=== PATIENT | male | born 1960 | race Caucasian/White ===

== ENCOUNTER 2017-11-26 02:02 | Emergency (ER) | payer OTHER ==
[~2017-11-26] VITALS: Ht 200.7 cm; Wt 128.6 kg
[~2017-11-26 02:02] MED LIST: ASPEC81 PO; LPR25 PO; LPT40 PO; LSN25 PO; MULTCAP33 PO; PRT40 PO
[2017-11-26] MEDS ORDERED: KETOROLAC TROMETHAMINE 30 MG/ML VIAL IV STA (02:07)
[2017-11-26] MEDS ORDERED: ONDANSETRON INJ 2 MG/ML 2 ML VIAL IV STA (02:07)
[2017-11-26 02:08] VITALS: TEMP 36.4; Ht 200.7 cm; Wt 128.6 kg
[2017-11-26 02:13] VITALS: O2SAT 99
[2017-11-26 02:27] LABS: BASO % 0.6 %; BASO ABS # 0.04 K/uL (0-0.2); EOS % 4.4 %; EOS ABS # 0.29 K/uL (0-0.5); HEMATOCRIT 42.1 % (42-52); HEMOGLOBIN 14.2 g/dL (14.0-18.0); IG# 0.01 K/uL (0.00-0.02); LYMPH % 28.7 %; LYMPH ABS # 1.91 K/uL (1.2-3.4); MEAN CELL VOLUME 93.8 fL (80-100); MEAN CORPUSCULAR HEMOGLOBIN 31.6 pg (25-34); MEAN CORPUSCULAR HGB CONC 33.7 g/dl (32-36); MEAN PLATELET VOLUME 10.5 fL (7.4-10.4); MONO % 8.9 %; MONO ABS # 0.59 K/uL (0.11-0.59); NEUT % 57.2 %; NEUT ABS # 3.82 K/uL (1.4-6.5); PLATELET COUNT 252 K/uL (130-400); RED CELL DISTRIBUTION WIDTH CV 13.1 % (11.5-14.5); RED CELL DISTRIBUTION WIDTH SD 45.1 fL (36.4-46.3); WHITE BLOOD COUNT 6.66 K/uL (4.8-10.8)
[2017-11-26] MEDS ORDERED: LISI-729 PO (02:55)
[2017-11-26] MEDS ORDERED: SERT50TA PO (02:55)
[2017-11-26 02:56] LABS: ALBUMIN 3.9 gm/dl (3.4-5.0); ALT/SGPT 47 U/L (12-78); AST/SGOT 28 U/L (15-37); BLOOD UREA NITROGEN 16 mg/dl (7-18); CALCIUM 8.4 mg/dl (8.5-10.1); CARBON DIOXIDE 26 mmol/L (21-32); CREATININE 0.95 mg/dl (0.60-1.40); GLUCOSE 123 mg/dl (70-99); POTASSIUM 3.8 mmol/L (3.5-5.1); SODIUM 138 mmol/L (136-145)
[2017-11-26 02:58] LABS: ALKALINE PHOSPHATASE 110 U/L (45-117); TOTAL PROTEIN 7.4 gm/dl (6.4-8.2)
[2017-11-26] MEDS ORDERED: MoRPHine SULFATE 4 MG/ML 1 ML CARP\\VIAL IV STA (03:09)
[2017-11-26] MEDS ORDERED: HYDROmorphone INJ 1 MG/ML SYR IV STA (04:06)
--- NOTE | 2017-11-26 05:19 | EMERGENCY ROOM VISIT NOTE ---
History First contact with patient: 02:06 Chief Complaint: FLANK PAIN Stated Complaint: ABDOMINAL PAIN History of Present Illness The patient is a 57 year old male who presents to the Emergency Room with complaints of severe sudden onset of right flank pain that radiates to his groin described as severe, 8 out of 10. Nothing makes it better or worse. Patient felt nauseous with the pain. Patient denies chest pain, dyspnea, fever , chills, testicular pain, penile pain, urinary symptoms. No history of kidney stones. Review of Systems An 10 system review of systems was completed with positives and pertinent negatives listed in the HPI. Past Medical/Surgical History Medical Problems: (1) Anxiety DM2 Family History Diabetes mellitus Gallbladder disease Heart disease Hypertension Social History Smoking Status: Never Smoker Drug Use: none Marital Status: Housing Status: lives with family Occupation Status: employed Current/Historical Medications Scheduled Aspirin (Aspirin EC Low Dose), 81 MG PO QAM Atorvastatin (Lipitor), 40 MG PO QAM Lisinopril (Prinivil), 5 MG PO DAILY Metoprolol Tartrate (Lopressor), 25 MG PO BID Multiple Vitamins W/ Minerals (Preservision Areds), 2 CAP PO DAILY Pantoprazole (Pantoprazole Sodium), 40 MG PO QAM Sertraline (Zoloft), 50 MG PO DAILY Physical Exam Vital Signs Date Time Temp Pulse Resp B/P (MAP) Pulse Ox O2 Delivery O2 Flow Rate FiO2 11/26/17 05:10 67 18 119/74 96 Room Air 11/26/17 03:29 70 18 133/88 100 Room Air 11/26/17 02:43 66 16 129/83 96 Room Air 11/26/17 02:21 61 18 131/76 95 Room Air 11/26/17 02:13 99 Room Air 11/26/17 02:13 99 Room Air 11/26/17 02:09 72 11/26/17 02:08 36.4 77 18 143/83 96 Room Air Physical Exam VITALS: Vitals are noted on the nurse's note and reviewed by myself. Vital signs stable. GENERAL: Pleasant male in obvious pain, in no acute distress, nondiaphoretic, well-developed well-nourished. SKIN: Capillary reflex less than 2 seconds. HEENT: Normocephalic. PERRLA. EOMI. Nares patent. Mucous membranes moist. Neck is supple without nuchal rigidity. HEART: Regular rate and rhythm without murmurs gallops or rubs. LUNGS: Clear to auscultation bilaterally without wheezes, rales or rhonchi. No retractions or accessory muscle use. ABDOMEN: Positive bowel sounds x 4. Normal tympanic percussion. Soft, nontender, without masses or organomegaly. Martinez sign negative. No guarding or rebound tenderness. No CVA tenderness MUSCULOSKELETAL: No gross musculoskeletal defects. NEURO: Patient was alert and oriented to person place and time. Normal sensation to light and sharp touch. No focal neurological deficits. Medical Decision & Procedures Laboratory Results 11/26/17 01:50 Red Blood Count 4.49, Mean Corpuscular Volume 93.8, Mean Corpuscular Hemoglobin 31.6, Mean Corpuscular Hemoglobin Concent 33.7, Mean Platelet Volume 10.5, Neutrophils (%) (Auto) 57.2, Lymphocytes (%) (Auto) 28.7, Monocytes (%) (Auto) 8.9, Eosinophils (%) (Auto) 4.4, Basophils (%) (Auto) 0.6, Neutrophils # (Auto) 3.82, Lymphocytes # (Auto) 1.91, Monocytes # (Auto) 0.59, Eosinophils # (Auto) 0.29, Basophils # (Auto) 0.04 11/26/17 01:50 Test 11/26/17 01:50 11/26/17 04:30 White Blood Count 6.66 K/uL (4.8-10.8) Red Blood Count 4.49 M/uL (4.7-6.1) Hemoglobin 14.2 g/dL (14.0-18.0) Hematocrit 42.1 % (42-52) Mean Corpuscular Volume 93.8 fL (80-100) Mean Corpuscular Hemoglobin 31.6 pg (25-34) Mean Corpuscular Hemoglobin Concent 33.7 g/dl (32-36) Platelet Count 252 K/uL (130-400) Mean Platelet Volume 10.5 fL (7.4-10.4) Neutrophils (%) (Auto) 57.2 % Lymphocytes (%) (Auto) 28.7 % Monocytes (%) (Auto) 8.9 % Eosinophils (%) (Auto) 4.4 % Basophils (%) (Auto) 0.6 % Neutrophils # (Auto) 3.82 K/uL (1.4-6.5) Lymphocytes # (Auto) 1.91 K/uL (1.2-3.4) Monocytes # (Auto) 0.59 K/uL (0.11-0.59) Eosinophils # (Auto) 0.29 K/uL (0-0.5) Basophils # (Auto) 0.04 K/uL (0-0.2) RDW Standard Deviation 45.1 fL (36.4-46.3) RDW Coefficient of Variation 13.1 % (11.5-14.5) Immature Granulocyte % (Auto) 0.2 % Immature Granulocyte # (Auto) 0.01 K/uL (0.00-0.02) Anion Gap 7.0 mmol/L (3-11) Est Creatinine Clear Calc Drug Dose 127.5 ml/min Estimated GFR () 101.1 Estimated GFR (Non- 87.3 BUN/Creatinine Ratio 16.8 (10-20) Calcium Level 8.4 mg/dl (8.5-10.1) Total Bilirubin 0.4 mg/dl (0.2-1) Direct Bilirubin < 0.1 mg/dl (0-0.2) Aspartate Amino Transf (AST/SGOT) 28 U/L (15-37) Alanine Aminotransferase (ALT/SGPT) 47 U/L (12-78) Alkaline Phosphatase 110 U/L (45-117) Total Protein 7.4 gm/dl (6.4-8.2) Albumin 3.9 gm/dl (3.4-5.0) Urine Color YELLOW Urine Appearance CLEAR (CLEAR) Urine pH 5.0 (4.5-7.5) Urine Specific Leonard 1.020 (1.000-1.030) Urine Protein NEG (NEG) Urine Glucose (UA) NEG (NEG) Urine Ketones NEG (NEG) Urine Occult Blood NEG (NEG) Urine Nitrite NEG (NEG) Urine Bilirubin NEG (NEG) Urine Urobilinogen NEG (NEG) Urine Leukocyte Esterase NEG (NEG) Medications Administered Medications (Trade) Dose Ordered Sig/Lisy Route Start Time Stop Time Status Last Admin Dose Admin Ketorolac Tromethamine (Toradol Inj) 30 mg NOW STAT IV 11/26/17 02:07 11/26/17 02:09 DC 11/26/17 02:21 30 MG Ondansetron HCl (Zofran Inj) 4 mg NOW STAT IV 11/26/17 02:07 11/26/17 02:09 DC 11/26/17 02:20 4 MG Morphine Sulfate (MoRPHine SULFATE INJ) 4 mg NOW STAT IV 11/26/17 03:09 11/26/17 03:11 DC 11/26/17 03:20 4 MG Hydromorphone HCl (Dilaudid Inj) 1 mg NOW STAT IV 11/26/17 04:06 11/26/17 04:08 DC 11/26/17 04:10 1 MG ED Course Prior records/ancillary studies reviewed. Triage Nursing notes reviewed. Additional history obtained from the family. The patient's history was concerning for right flank pain. Differential diagnosis: Etiologies such as renal colic, appendicitis, diverticulitis, mesenteric ischemia, aortic pathology, infections, inflammatory bowel disease, PUD, biliary pathology, UTI, as well as others were entertained. Physical examination findings: As above. ER treatment provided: Morphine, Toradol, Zofran On reassessment the patient felt better. Diagnostic interpretation by me: The labs revealed hyperglycemia without DKA no leukocytosis. Urinalysis revealed There was no sign of UTI. Imaging studies: CT of the abdomen and pelvis was reviewed and read by radiology concerning a 2 mm obstructing stone on the right side It appears that the patient has isolated renal colic from a right sided stone. Patient's pain was managed. He was neurovascularly and neurologically intact. He is advised to strain his urine and take medications as directed. He was advised to follow-up with urology in a few days or here in the ER sooner for severe pain, fevers, vomiting, worsening signs or symptoms or as needed. By the evaluation outlined above emergent etiologies such as appendicitis, diverticulitis, mesenteric ischemia, aortic pathology, infections, inflammatory bowel disease, PUD, biliary pathology, UTI, as well as others were deemed relatively unlikely. The pt informed about the findings as listed above. All questions were answered and pleased with the treatment. Return instructions were outlined and the patient was discharged in stable condition. Outpatient prescription management: Oxy IR 5mg 1-2 po Q4 hrs prn Zofran Referral: The pt was referred to [facility] for follow up care regarding their stone. or The patient was referred back to their primary care physician for follow-up in 2 to 3 days for a recheck of the current condition. Case reviewed with my attending Medical Decision As above [place] Drug Monitoring Program Search Results: patient reviewed within database, no issues identified Medication Reconcilliation Current Medication List: was personally reviewed by me Blood Pressure Screening Patient's blood pressure: Normal blood pressure Impression Primary Impression: Renal colic on right side Additional Impression: Hyperglycemia Departure Information Dispostion Home / Self-Care Condition GOOD Referrals Hui Greenwood M.D. (PCP) Patient Instructions My [facility] Additional Instructions DO NOT drive, drink alcohol, operate machinery, or perform dangerous activities today. You were given medications in the ER that can affect your ability to safely function or operate a vehicle. Monitor your blood sugar. It was elevated tonight. Oxycodone Immediate Release (OxyIR) 5mg: Take 1-2 pills every four hours for pain. Avoid alcohol, operating machinery or dangerous equipment, working on ladders or roofs, DRIVING, or situations where being under the influence may be dangerous. It is recommended to use an [id number]-[id number] stool softener such as Colace, 100mg twice daily while taking this medication to avoid constipation. Zofran 4 mg: Take one every six hours as needed for nausea. Avoid alcohol, operating machinery or dangerous equipment, working on ladders or roofs, DRIVING , or situations where being under the influence may be dangerous. Ibuprofen(Motrin, Advil) may be used for fever or pain. Use 600mg every six hours as needed. Take with food. Avoid using more than 2400mg in a 24 hour period. Do not use 2400mg per day for more than three consecutive days without physician direction. Prolonged inappropriate use can lead to stomach upset or ulcers. This medication can be taken if you need to drive, work, or perform activities which may be dangerous when taking narcotic pain medication. (AND/OR) Acetaminophen(Tylenol) may be used for fever or pain. Use 1000mg every six hours as needed. Avoid using more than 3000mg in a 24 hour period. This medication can be taken if you need to drive, work, or perform activities which may be dangerous when taking narcotic pain medication. Strain your urine and collect all the stones or debris for the urologists. Rest and avoid strenuous activity until your stone passes and symptoms resolve. Drink plenty of fluids. Continue current medications. Return to the ER for worsening abdominal or back pain, vomiting, fevers, passing out, or as needed. Follow up with urology in 2-3 days, call for an appointment. Problem Qualifiers
[2017-11-26] MEDS ORDERED: OXYC1TAB3 PO ×2 (05:21→05:22)
[2017-11-26] MEDS ORDERED: ONDANSETRON HOME PACK 4MG OD TAB PO ONE (05:30)
[2017-11-26] MEDS ORDERED: OXYCODONE IR HOME PACK PO ONE (05:30)
[2017-11-26 05:41] VITALS: BP 119/74; PULSE 76; O2SAT 98
--- NOTE | 2017-11-26 06:38 | DIAGNOSTIC IMAGING REPORT ---
ABD/PELVIS WITHOUT FOR STONE CT DOSE: 1452.01 mGy.cm HISTORY: Pain right flank pain, ? stone TECHNIQUE: Multiaxial CT images of the abdomen and pelvis were performed without the use of intravenous and oral contrast according to the standard department stone protocol. A dose lowering technique was utilized adhering to the principles of ALARA. COMPARISON STUDY: None. FINDINGS: Minimal dependent basilar atelectasis. Liver spleen and pancreas appear unremarkable. Mild right renal hydronephrosis. 2 mm cortical calcification right kidney. Left kidney is unremarkable. The adrenal glands are normal. Mild right hydroureter. 2 mm calcification right ureterovesical junction. Bladder is midline. Bowel pattern is nonobstructive. IMPRESSION: 1. 2 mm calcification right ureterovesical junction. 2. Mild right hydroureteronephrosis. 3. Nonobstructing right renal cortical calcification. The above report was generated using voice recognition software. It may contain grammatical, syntax or spelling errors. Electronically signed by: Jonathon Puckett M.D. 11/26/2017 6:37 AM Dictated Date/Time: 11/26/2017 6:36 AM
== END 2017-11-26 05:40 | disposition home or self-care (01) ==
LOC: EDBD 02:02 → C.EDB 02:03
DX: N23 Unspecified renal colic (principal); E11.65 Type 2 diabetes mellitus with hyperglycemia; N20.1 Calculus of ureter; F41.9 Anxiety disorder, unspecified; Z83.3 Family history of diabetes mellitus; Z82.49 Family history of ischemic heart disease and other diseases of the circulatory system; Z79.82 Long term (current) use of aspirin

== ENCOUNTER 2018-05-22 07:20 | Emergency (ER) | payer OTHER ==
[~2018-05-22] VITALS: Ht 200.7 cm; Wt 126.2 kg
[~2018-05-22 07:20] MED LIST changes: -ASPEC81 PO; +ASPI-320 PO; +LISI-729 PO; -LSN25 PO; +OXYC-737 PO; +PANT1TAB4 PO; -PRT40 PO; +SERT50TA PO
[2018-05-22 07:22] VITALS: TEMP 37.4; Ht 200.7 cm; Wt 126.2 kg
[2018-05-22] MEDS ORDERED: IBUPROFEN 600 MG TAB PO STA (07:35)
[2018-05-22] MEDS ORDERED: CIPROFLOXACIN 500 MG TAB PO STA (07:40)
[2018-05-22] MEDS ORDERED: ONDANSETRON 4MG OD TAB PO ONE (07:45)
[2018-05-22 08:04] LABS: BASO % 0.2 %; BASO ABS # 0.02 K/uL (0-0.2); EOS % 0.6 %; EOS ABS # 0.07 K/uL (0-0.5); HEMATOCRIT 38.6 % (42-52); HEMOGLOBIN 12.8 g/dL (14.0-18.0); IG# 0.04 K/uL (0.00-0.02); LYMPH % 12.3 %; LYMPH ABS # 1.51 K/uL (1.2-3.4); MEAN CORPUSCULAR HEMOGLOBIN 30.8 pg (25-34); MEAN CORPUSCULAR HGB CONC 33.2 g/dl (32-36); MEAN PLATELET VOLUME 10.2 fL (7.4-10.4); MONO % 11.9 %; MONO ABS # 1.46 K/uL (0.11-0.59); NEUT % 74.7 %; NEUT ABS # 9.13 K/uL (1.4-6.5); PLATELET COUNT 235 K/uL (130-400); RED CELL DISTRIBUTION WIDTH CV 13.2 % (11.5-14.5); RED CELL DISTRIBUTION WIDTH SD 45.2 fL (36.4-46.3); WHITE BLOOD COUNT 12.23 K/uL (4.8-10.8)
--- NOTE | 2018-05-22 08:10 | DIAGNOSTIC IMAGING REPORT ---
R FOOT MIN 3 VIEWS ROUTINE CLINICAL HISTORY: Redness swelling/stepped on nail. COMPARISON: None FINDINGS: Tarsometatarsal joints are intact. No acute fracture or radiopaque foreign body is noted. Soft tissue swelling of the right first toe and medial to the right first metatarsophalangeal joint is noted. There is no evidence for osteomyelitis. 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 IMPRESSION: Right first toe soft tissue swelling. No acute fracture, radiopaque foreign body or evidence for osteomyelitis. Electronically signed by: Rocco Patel M.D. 05/22/2018 8:08 AM Dictated Date/Time: 05/22/2018 8:07 AM
[2018-05-22 08:23] LABS: CALCIUM 9.1 mg/dl (8.5-10.1); CREATININE 0.98 mg/dl (0.60-1.40); POTASSIUM 3.7 mmol/L (3.5-5.1)
[2018-05-22] MEDS ORDERED: CIPR1TAB10 PO (08:31)
--- NOTE | 2018-05-22 08:33 | EMERGENCY ROOM VISIT NOTE ---
History First contact with patient: 07:25 Chief Complaint: FOOT PAIN Stated Complaint: RT FOOT PAIN History of Present Illness The patient is a 57 year old male who presents to the Emergency Room with complaints of right foot pain and swelling. The patient states that on Monday he stepped on a 3 inch drywall nail that was on a board and it went through his shoe into his foot. He states it was at least an inch and a half or 2 inches into his foot. He pulled it out. He called his family doctor on Monday to make sure his tetanus was up-to-date and states that it is up-to-date. He states yesterday it started becoming more painful and started swelling and got red. Today it is much worse. He took Tylenol last night for pain without any relief. He did not take anything today. The patient denies any numbness and tingling in his foot. The patient is diabetic. He admits he is not very compliant with his medications or checking his blood sugars. He does admit that he washed the wound out with water and peroxide. He states that he feels a little nauseous. He also felt like he was chilled yesterday. Review of Systems 10 system review was performed and was negative unless stated otherwise history of present illness. Past Medical/Surgical History Medical Problems: (1) Anxiety Hypertension, diabetic, kidney stones, back surgery, appendectomy Family History Diabetes mellitus Gallbladder disease Heart disease Hypertension Social History Smoking Status: Never Smoker Drug Use: none Marital Status: Housing Status: lives with family Occupation Status: employed Current/Historical Medications Scheduled Aspirin (Aspirin EC Low Dose), 81 MG PO QAM Atorvastatin (Lipitor), 40 MG PO QAM Lisinopril (Prinivil), 5 MG PO DAILY Metoprolol Tartrate (Lopressor), 25 MG PO BID Multiple Vitamins W/ Minerals (Preservision Areds), 2 CAP PO DAILY Pantoprazole (Pantoprazole Sodium), 40 MG PO QAM Sertraline (Zoloft), 50 MG PO DAILY Scheduled PRN Oxycodone Immediate Rel Tab (Roxicodone Ir), 1-2 TAB PO Q4H PRN for Severe Pain Physical Exam Vital Signs Date Time Temp Pulse Resp B/P (MAP) Pulse Ox O2 Delivery O2 Flow Rate FiO2 05/22/18 07:22 37.4 82 18 139/73 94 Room Air Physical Exam GENERAL: 57-year-old white male appears in no acute distress. MENTAL Status alert and oriented 3 NECK: Supple, no lymphadenopathy noted. No carotid bruits noted. LUNGS: Clear auscultation without wheezes rales or rhonchi. CARDIAC: Regular rate and rhythm without murmur. Pulses is full and equal throughout. RIGHT FOOT: No gross bony deformity noted. There is a healed puncture wound on the plantar surface over the distal first metatarsal region. There is diffuse erythema and edema from the first metatarsal extending over the entire great toe. There is a red streak on the dorsal aspect of the foot. I do not appreciate any distinctive red streaking up the leg. Medical Decision & Procedures ER Provider Diagnostic Interpretation: R FOOT MIN 3 VIEWS ROUTINE CLINICAL HISTORY: Redness swelling/stepped on nail. COMPARISON: None FINDINGS: Tarsometatarsal joints are intact. No acute fracture or radiopaque foreign body is noted. Soft tissue swelling of the right first toe and medial to the right first metatarsophalangeal joint is noted. There is no evidence for osteomyelitis. 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 IMPRESSION: Right first toe soft tissue swelling. No acute fracture, radiopaque foreign body or evidence for osteomyelitis. Electronically signed by: Rocco Patel M.D. 05/22/2018 8:08 AM Dictated Date/Time: 05/22/2018 8:07 AM Laboratory Results 05/22/18 07:50 Red Blood Count 4.15, Mean Corpuscular Volume 93.0, Mean Corpuscular Hemoglobin 30.8, Mean Corpuscular Hemoglobin Concent 33.2, Mean Platelet Volume 10.2, Neutrophils (%) (Auto) 74.7, Lymphocytes (%) (Auto) 12.3, Monocytes (%) (Auto) 11.9, Eosinophils (%) (Auto) 0.6, Basophils (%) (Auto) 0.2, Neutrophils # (Auto ) 9.13, Lymphocytes # (Auto) 1.51, Monocytes # (Auto) 1.46, Eosinophils # (Auto ) 0.07, Basophils # (Auto) 0.02 05/22/18 07:50 Test 05/22/18 07:50 White Blood Count 12.23 K/uL (4.8-10.8) Red Blood Count 4.15 M/uL (4.7-6.1) Hemoglobin 12.8 g/dL (14.0-18.0) Hematocrit 38.6 % (42-52) Mean Corpuscular Volume 93.0 fL (80-100) Mean Corpuscular Hemoglobin 30.8 pg (25-34) Mean Corpuscular Hemoglobin Concent 33.2 g/dl (32-36) Platelet Count 235 K/uL (130-400) Mean Platelet Volume 10.2 fL (7.4-10.4) Neutrophils (%) (Auto) 74.7 % Lymphocytes (%) (Auto) 12.3 % Monocytes (%) (Auto) 11.9 % Eosinophils (%) (Auto) 0.6 % Basophils (%) (Auto) 0.2 % Neutrophils # (Auto) 9.13 K/uL (1.4-6.5) Lymphocytes # (Auto) 1.51 K/uL (1.2-3.4) Monocytes # (Auto) 1.46 K/uL (0.11-0.59) Eosinophils # (Auto) 0.07 K/uL (0-0.5) Basophils # (Auto) 0.02 K/uL (0-0.2) RDW Standard Deviation 45.2 fL (36.4-46.3) RDW Coefficient of Variation 13.2 % (11.5-14.5) Immature Granulocyte % (Auto) 0.3 % Immature Granulocyte # (Auto) 0.04 K/uL (0.00-0.02) Anion Gap 8.0 mmol/L (3-11) Est Creatinine Clear Calc Drug Dose 122.5 ml/min Estimated GFR () 97.4 Estimated GFR (Non- 84.1 BUN/Creatinine Ratio 17.3 (10-20) Calcium Level 9.1 mg/dl (8.5-10.1) Medications Administered Medications (Trade) Dose Ordered Sig/Lisy Route Start Time Stop Time Status Last Admin Dose Admin Ibuprofen (Motrin Tab) 600 mg NOW STAT PO 05/22/18 07:35 05/22/18 07:37 DC 05/22/18 07:43 600 MG Ciprofloxacin (Cipro Tab) 500 mg NOW STAT PO 05/22/18 07:40 05/22/18 07:42 DC 05/22/18 07:43 500 MG Ondansetron HCl (Zofran Odt) 4 mg ONE ONCE PO 05/22/18 07:45 05/22/18 07:46 DC 05/22/18 07:51 4 MG ED Course The patient was evaluated. Patient's EMR medication list were reviewed. CBC and differential and renal profile was ordered. The patient was given Cipro 500 mg p.o. and Zofran 4 mg ODT. X-ray of the right foot was ordered interpreted by the radiologist and myself as above without any evidence of foreign body, fracture or osteomyelitis. Labs are reviewed. The patient's white count was elevated at 12,000.. Renal profile was reviewed and glucose is only slightly elevated at 112. Otherwise labs are unremarkable. Patient was informed of the findings and discharged home in stable condition. Medical Decision The patient is diabetic therefore baseline labs were obtained. Differential diagnosis includes cellulitis, osteomyelitis. [place] Drug [place] Search Results: patient reviewed within database Medication Reconcilliation Current Medication List: was personally reviewed by [place] Blood Pressure Screening Patient's blood pressure: Normal blood pressure Impression Primary Impression: Cellulitis of foot, right Departure Information Dispostion Home / Self-Care Condition GOOD Prescriptions Ciprofloxacin Hcl (CIPRO) 500 Mg Tab 500 MG PO BID for 10 Days, #20 TAB Prov: Katie Puckett PA-C 05/22/18 Referrals Hui Greenwood M.D. (PCP) Forms HOME CARE DOCUMENTATION FORM, IMPORTANT VISIT INFORMATION Patient Instructions Cellulitis - [facility], [facility] Additional Instructions Keep leg elevated whenever possible. Ibuprofen 600 mg every 6 hours with food for pain. Take Cipro as prescribed. Call your family doctor today for follow- up appointment in 24-48 hours. If symptoms worsen in the interim, return to ER.
[2018-05-22 08:47] VITALS: BP 110/59; PULSE 74; O2SAT 95
== END 2018-05-22 08:48 | disposition home or self-care (01) ==
LOC: C.EDB 07:21 → C.EDA 08:48
DX: L03.115 Cellulitis of right lower limb (principal); W22.8XXA Striking against or struck by other objects, initial encounter; I10 Essential (primary) hypertension; E11.9 Type 2 diabetes mellitus without complications; Z91.14 Patient's other noncompliance with medication regimen; Z79.899 Other long term (current) drug therapy

== ENCOUNTER 2018-05-26 13:00 | Observation (INO) | payer OTHER ==
[~2018-05-26] VITALS: Ht 200.7 cm; Wt 126.1 kg
[~2018-05-26 13:00] MED LIST changes: +CIPR1TAB10 PO
[2018-05-26] MEDS ORDERED: VANCOMYCIN IV 2,500 MG in SODIUM CHLORIDE 0.9% 500ML 500 ML IV STA (13:29)
[2018-05-26] MEDS ORDERED: VANCOMYCIN CONSULT ACTIVE PRN ×2 (13:30→16:15)
--- NOTE | 2018-05-26 13:35 | EMERGENCY ROOM VISIT NOTE ---
History Report prepared by Carroll: Tom Beltran Under the Supervision of: Dr. Jolene Pal M.D. First contact with patient: 13:12 Chief Complaint: FOOT PAIN Stated Complaint: RIGHT FOOT SWELLING PT WAS TOLD TO RETURN TO ER History of Present Illness The patient is a 57 year old male who presents to the Emergency Room with complaints of worsening pain in his right foot beginning 6 days ago. The patient states he stepped on a screw 6 days ago while clearing old wooden boards. He notes he was wearing sneakers when this occurred. He reports he had a tetanus shot and washed it with peroxide. The patient notes he was able to walk on it on Monday and Monday. He states he woke up on Monday and had severe swelling and redness to his foot. The patient reports he was evaluated Monday night and given Cipro. He notes he was told to come back if it did not feel better. The patient states since then, he has had a decreased sensation to his big right toe. He reports he can feel pain, but he cannot move it. The patient notes a history of type II diabetes. He states he cannot walk on it because walking makes his symptoms worse. The patient denies fevers. Source of History: patient Onset: 6 days ago Position: foot (right) Timing: worsening Modifying Factors (Worsening): other (walking) Associated Symptoms: No fevers Note: Associated symptoms: swelling and redness to the foot, decreased sensation to the big right toe Review of Systems See HPI for pertinent positives & negatives. A total of 10 systems reviewed and were otherwise negative. Past Medical & Surgical Medical Problems: (1) Anxiety Family History Diabetes mellitus Gallbladder disease Heart disease Hypertension Social History Smoking Status: Never Smoker Drug Use: none Marital Status: Housing Status: lives with family Occupation Status: employed Current/Historical Medications Scheduled Aspirin (Aspirin EC Low Dose), 81 MG PO QAM Atorvastatin (Lipitor), 40 MG PO QAM Ciprofloxacin Hcl (Cipro), 500 MG PO BID Lisinopril (Prinivil), 5 MG PO DAILY Metoprolol Tartrate (Lopressor), 25 MG PO BID Multiple Vitamins W/ Minerals (Preservision Areds), 2 CAP PO DAILY Pantoprazole (Pantoprazole Sodium), 40 MG PO QAM Sertraline (Zoloft), 50 MG PO DAILY Allergies Coded Allergies: Adhesives (Verified Allergy, Mild, RASH, 11/26/17) Nitroglycerin (Verified Adverse Reaction, Severe, SHORTNESS OF BREATH, 09/02) PT REPORTED DIFFICULTY BREATHING, INCREASED CHEST PAIN, DIAPHORESIS Physical Exam Vital Signs Date Time Temp Pulse Resp B/P (MAP) Pulse Ox O2 Delivery O2 Flow Rate FiO2 05/26/18 16:15 71 18 100/75 96 Room Air 05/26/18 15:53 95 Room Air 05/26/18 14:23 72 20 94/57 95 Room Air 05/26/18 13:04 36.7 90 18 135/69 95 Room Air Physical Exam Vital signs reviewed. General: Well-appearing 57 year old male, in no significant distress. HEENT: No scleral icterus, PERRLA, neck supple. Atraumatic. Cardiovascular: Regular rate and rhythm, no extra sounds. Pulmonary: Clear to auscultation bilaterally, normal work of breathing. Abdomen: Soft, nontender, nondistended, positive bowel sounds. Musculoskeletal: Atraumatic, no peripheral edema. Erythema over the right great toe. Pain with any ROM. Some swelling and pain along the medial malleolus. Neurologic: Patient awake alert and oriented x 3 Skin: Warm, dry, erythema to the right great toe as above. Medical Decision & Procedures ER Provider Diagnostic Interpretation: X-ray results as stated below per interpretation by me and the radiologist: RIGHT FOOT 3 VIEWS CLINICAL HISTORY: Right foot pain and erythema. Puncture wound with a screw. FINDINGS: 3 views of the right foot are compared to study dated 05/22/2018. The skeletal structures are well mineralized for age. No fracture is identified. No bony erosion or periostitis is seen. Minimal osteoarthritic change is noted at the first metatarsophalangeal joint. There is degenerative spurring along the dorsal aspect of the tarsal bones. A high arch is noted. Mild soft tissue edema is present in the forefoot. No radiodense/metallic foreign body is seen. Small foci of subcutaneous gas are identified. IMPRESSION: 1. No acute bony abnormality is identified in the right foot. 2. Soft tissue edema is present in the forefoot. Correlate clinically for evidence of cellulitis. No radiodense foreign body is seen. Electronically signed by: Lex Wheeler M.D. 05/26/2018 2:23 PM Dictated Date/Time: 05/26/2018 2:21 PM Laboratory Results 05/26/18 14:15 Red Blood Count 4.04, Mean Corpuscular Volume 93.6, Mean Corpuscular Hemoglobin 30.2, Mean Corpuscular Hemoglobin Concent 32.3, Mean Platelet Volume 9.8, Neutrophils (%) (Auto) 59.9, Lymphocytes (%) (Auto) 24.9, Monocytes (%) (Auto) 7.3, Eosinophils (%) (Auto) 7.2, Basophils (%) (Auto) 0.4, Neutrophils # (Auto) 4.27, Lymphocytes # (Auto) 1.77, Monocytes # (Auto) 0.52, Eosinophils # (Auto) 0.51, Basophils # (Auto) 0.03 05/26/18 14:15 Test 05/26/18 14:15 White Blood Count 7.12 K/uL (4.8-10.8) Red Blood Count 4.04 M/uL (4.7-6.1) Hemoglobin 12.2 g/dL (14.0-18.0) Hematocrit 37.8 % (42-52) Mean Corpuscular Volume 93.6 fL (80-100) Mean Corpuscular Hemoglobin 30.2 pg (25-34) Mean Corpuscular Hemoglobin Concent 32.3 g/dl (32-36) Platelet Count 272 K/uL (130-400) Mean Platelet Volume 9.8 fL (7.4-10.4) Neutrophils (%) (Auto) 59.9 % Lymphocytes (%) (Auto) 24.9 % Monocytes (%) (Auto) 7.3 % Eosinophils (%) (Auto) 7.2 % Basophils (%) (Auto) 0.4 % Neutrophils # (Auto) 4.27 K/uL (1.4-6.5) Lymphocytes # (Auto) 1.77 K/uL (1.2-3.4) Monocytes # (Auto) 0.52 K/uL (0.11-0.59) Eosinophils # (Auto) 0.51 K/uL (0-0.5) Basophils # (Auto) 0.03 K/uL (0-0.2) RDW Standard Deviation 44.2 fL (36.4-46.3) RDW Coefficient of Variation 12.9 % (11.5-14.5) Immature Granulocyte % (Auto) 0.3 % Immature Granulocyte # (Auto) 0.02 K/uL (0.00-0.02) Erythrocyte Sedimentation Rate 17 mm/hr (0-14) Anion Gap 5.0 mmol/L (3-11) Est Creatinine Clear Calc Drug Dose 117.7 ml/min Estimated GFR () 92.8 Estimated GFR (Non- 80.1 BUN/Creatinine Ratio 14.9 (10-20) Calcium Level 8.5 mg/dl (8.5-10.1) Total Bilirubin 0.3 mg/dl (0.2-1) Direct Bilirubin 0.1 mg/dl (0-0.2) Aspartate Amino Transf (AST/SGOT) 21 U/L (15-37) Alanine Aminotransferase (ALT/SGPT) 30 U/L (12-78) Alkaline Phosphatase 87 U/L (45-117) C-Reactive Protein 1.54 mg/dl (0-0.29) Total Protein 7.2 gm/dl (6.4-8.2) Albumin 3.6 gm/dl (3.4-5.0) Laboratory results per my review. Medications Administered Medications (Trade) Dose Ordered Sig/Lisy Route Start Time Stop Time Status Last Admin Dose Admin Vancomycin HCl 2500 mg/Sodium Chloride 550 ml @ 200 mls/hr ONE STAT IV 05/26/18 13:29 05/26/18 16:13 DC 05/26/18 14:18 200 MLS/HR Acetaminophen (Tylenol Tab) 650 mg Q4H PRN PO 05/26/18 16:15 06/25/18 16:14 05/27/18 12:28 650 MG ED Course 1329: Past medical records reviewed. The patient was evaluated in room C05. A complete history and physical examination was performed. 1521: Upon reevaluation, the patient is resting comfortably. I discussed laboratory and radiographic results with him. He verbalized agreement of the treatment plan. The patient will be evaluated for further management and care. 1526: I discussed the patient's case with Dr. Nair, [facility] Hospitalist. The patient will be evaluated for further management and care. Medical Decision Differential diagnosis: Etiologies such as cellulitis, abscess, MRSA infection, DVT, necrotizing fasciitis, dermatitis, osteomyelitis, drug eruption, as well as others were entertained. This patient was evaluated and appeared to be in no significant distress. IV access was obtained and laboratory work was drawn. IV vancomycin was initiated. The patient does not appear to be septic however does have some erythema streaking up the medial aspect of the ankle/foot. X-rays were performed and reveal no evidence of osteomyelitis. Sedimentation rate and CRP are mildly elevated. Given the fact that a screw entered the patient's foot through his sneaker, he was placed on Cipro but has failed treatment. He is diabetic and is at increased risk for infection/failed treatment. Case was discussed with Dr. Nair of the hospitalist service. She will evaluate the patient for further management. Medication Reconcilliation Current Medication List: was personally reviewed by me Blood Pressure Screening Patient's blood pressure: Normal blood pressure Blood pressure disposition: Did not require urgent referral Consults Time Called: 1524 Consulting Physician: Dr. Nair, [facility] Hospitalist Returned Call: 1526 I discussed the patient's case with Dr. Nair, [facility] Hospitalist. The patient will be evaluated for further management and care. Impression Primary Impression: Cellulitis of right foot Additional Impressions: Type II diabetes mellitus Evaluation for osteomyelitis Scribe Attestation The scribe's documentation has been prepared under my direction and personally reviewed by me in its entirety. I confirm that the note above accurately reflects all work, treatment, procedures, and medical decision making performed by me. Departure Information Dispostion Being Evaluated By Hospitalist Referrals Hui Greenwood M.D. (PCP) Patient Instructions My [facility] Problem Qualifiers
--- NOTE | 2018-05-26 14:25 | DIAGNOSTIC IMAGING REPORT ---
RIGHT FOOT 3 VIEWS CLINICAL HISTORY: Right foot pain and erythema. Puncture wound with a screw. FINDINGS: 3 views of the right foot are compared to study dated 05/22/2018. The skeletal structures are well mineralized for age. No fracture is identified. No bony erosion or periostitis is seen. Minimal osteoarthritic change is noted at the first metatarsophalangeal joint. There is degenerative spurring along the dorsal aspect of the tarsal bones. A high arch is noted. Mild soft tissue edema is present in the forefoot. No radiodense/metallic foreign body is seen. Small foci of subcutaneous gas are identified. IMPRESSION: 1. No acute bony abnormality is identified in the right foot. 2. Soft tissue edema is present in the forefoot. Correlate clinically for evidence of cellulitis. No radiodense foreign body is seen. Electronically signed by: Lex Wheeler M.D. 05/26/2018 2:23 PM Dictated Date/Time: 05/26/2018 2:21 PM
[2018-05-26 14:34] LABS: BASO % 0.4 %; BASO ABS # 0.03 K/uL (0-0.2); EOS % 7.2 %; EOS ABS # 0.51 K/uL (0-0.5); HEMATOCRIT 37.8 % (42-52); HEMOGLOBIN 12.2 g/dL (14.0-18.0); IG# 0.02 K/uL (0.00-0.02); LYMPH % 24.9 %; LYMPH ABS # 1.77 K/uL (1.2-3.4); MEAN CELL VOLUME 93.6 fL (80-100); MEAN CORPUSCULAR HEMOGLOBIN 30.2 pg (25-34); MEAN CORPUSCULAR HGB CONC 32.3 g/dl (32-36); MEAN PLATELET VOLUME 9.8 fL (7.4-10.4); MONO % 7.3 %; MONO ABS # 0.52 K/uL (0.11-0.59); NEUT % 59.9 %; NEUT ABS # 4.27 K/uL (1.4-6.5); PLATELET COUNT 272 K/uL (130-400); RED CELL DISTRIBUTION WIDTH CV 12.9 % (11.5-14.5); RED CELL DISTRIBUTION WIDTH SD 44.2 fL (36.4-46.3); WHITE BLOOD COUNT 7.12 K/uL (4.8-10.8)
[2018-05-26 14:54] LABS: ALBUMIN 3.6 gm/dl (3.4-5.0); CALCIUM 8.5 mg/dl (8.5-10.1); CREATININE 1.02 mg/dl (0.60-1.40); POTASSIUM 3.8 mmol/L (3.5-5.1); TOTAL PROTEIN 7.2 gm/dl (6.4-8.2)
[2018-05-26 15:53] VITALS: O2SAT 95; Ht 200.7 cm; Wt 126.1 kg
[2018-05-26] MEDS ORDERED: ACETAMINOPHEN 325 MG TAB PO PRN (16:15)
[2018-05-26] MEDS ORDERED: ONDANSETRON INJ 2 MG/ML 2 ML VIAL IV PRN (16:15)
[2018-05-26] MEDS ORDERED: MAGNESIUM HYDROXIDE SUSP 30 ML UDC PO PRN (16:15)
--- NOTE | 2018-05-26 16:29 | History and Physical ---
History & Physical Date & Time of Service: May 26, 2018 at 16:21 Chief Complaint: Right Foot Swelling Pt Was Told To Return To Er Primary Care Physician: Hui Greenwood M.D. History of Present Illness Source: patient 57 y/o M c/o worsening R foot cellulitis. Pt states he stepped on a screw last Monday. He has done this in the past and had no issues with infection, however by Monday his R foot was red, swollen, and painful. He came to the ED and was started on cipro, which he did start that day and continued to take. He noted today his R foot was worse. Increased redness, swelling, pain. He cannot feel his great toe and he cannot move it much either. No pain with the limited movement he is able to do. No pain to the foot at rest, but the pain with ambulation is worse. The redness was just around the great toe prior, however now it has spread along the arch to the back of the foot. He did have nausea but no emesis. He has felt well otherwise. No hx of cellulitis. Pt denies fever, SOB, chest pain, abd pain, c/d. Pt called his PCP office and his last tetanus vaccine was 2011. Past Medical/Surgical History DM-diet controlled HTN Hyperlipidemia GERD Anxiety Family History Family history was reviewed; no changes noted. Father s/p CABG Social History Smoking Status: Never Smoker Alcohol Use: none Drug Use: none Marital Status: Housing status: lives with significant other Occupational Status: employed Immunizations History of Influenza Vaccine: Yes Influenza Vaccine Date: Jun 20, 2012 History of Tetanus Vaccine?: Yes Tetanus Immunization Date: Jun 20, 2012 History of Pneumococcal: No History of Hepatitis B Vaccine: No Allergies Coded Allergies: Adhesives (Verified Allergy, Mild, RASH, 11/26/17) Nitroglycerin (Verified Adverse Reaction, Severe, SHORTNESS OF BREATH, 09/02) PT REPORTED DIFFICULTY BREATHING, INCREASED CHEST PAIN, DIAPHORESIS Home Medications Scheduled Aspirin (Aspirin EC Low Dose), 81 MG PO QAM Atorvastatin (Lipitor), 40 MG PO QAM Ciprofloxacin Hcl (Cipro), 500 MG PO BID Lisinopril (Prinivil), 5 MG PO DAILY Metoprolol Tartrate (Lopressor), 25 MG PO BID Multiple Vitamins W/ Minerals (Preservision Areds), 2 CAP PO DAILY Pantoprazole (Pantoprazole Sodium), 40 MG PO QAM Sertraline (Zoloft), 50 MG PO DAILY Review of Systems Pertinent positives and negatives reviewed in HPI--all others negative Physical Exam Vital Signs Date Time Temp Pulse Resp B/P (MAP) Pulse Ox O2 Delivery O2 Flow Rate FiO2 05/26/18 15:53 95 Room Air 05/26/18 14:23 72 20 94/57 95 Room Air 05/26/18 13:04 36.7 90 18 135/69 95 Room Air General Appearance: WD/WN, no apparent distress Head: normocephalic, atraumatic Eyes: normal inspection, sclerae normal Respiratory/Chest: normal breath sounds, no respiratory distress Cardiovascular: regular rate, rhythm, normal peripheral pulses Abdomen/GI: non tender, soft Extremities/Musculoskelatal: no calf tenderness, + swelling, + pertinent finding (TTP) Neurologic/Psych: alert, normal mood/affect Skin: warm/dry, + pertinent finding (redness is most intense along R great toe and moving posteriorly to arch and heel, puncture site noted on ball of R great toe that is closed and no signs of bleeding or purulence or redness) Diagnostics Laboratory Results Results Past 24 Hours Test 05/26/18 14:15 Range/Units White Blood Count 7.12 4.8-10.8 K/uL Red Blood Count 4.04 4.7-6.1 M/uL Hemoglobin 12.2 14.0-18.0 g/dL Hematocrit 37.8 42-52 % Mean Corpuscular Volume 93.6 80-100 fL Mean Corpuscular Hemoglobin 30.2 25-34 pg Mean Corpuscular Hemoglobin Concent 32.3 32-36 g/dl Platelet Count 272 130-400 K/uL Mean Platelet Volume 9.8 7.4-10.4 fL Neutrophils (%) (Auto) 59.9 % Lymphocytes (%) (Auto) 24.9 % Monocytes (%) (Auto) 7.3 % Eosinophils (%) (Auto) 7.2 % Basophils (%) (Auto) 0.4 % Neutrophils # (Auto) 4.27 1.4-6.5 K/uL Lymphocytes # (Auto) 1.77 1.2-3.4 K/uL Monocytes # (Auto) 0.52 0.11-0.59 K/uL Eosinophils # (Auto) 0.51 0-0.5 K/uL Basophils # (Auto) 0.03 0-0.2 K/uL RDW Standard Deviation 44.2 36.4-46.3 fL RDW Coefficient of Variation 12.9 11.5-14.5 % Immature Granulocyte % (Auto) 0.3 % Immature Granulocyte # (Auto) 0.02 0.00-0.02 K/uL Erythrocyte Sedimentation Rate 17 0-14 mm/hr Sodium Level 138 136-145 mmol/L Potassium Level 3.8 3.5-5.1 mmol/L Chloride Level 106 98-107 mmol/L Carbon Dioxide Level 27 21-32 mmol/L Anion Gap 5.0 3-11 mmol/L Blood Urea Nitrogen 15 7-18 mg/dl Creatinine 1.02 0.60-1.40 mg/dl Est Creatinine Clear Calc Drug Dose 117.7 ml/min Estimated GFR () 92.8 Estimated GFR (Non- 80.1 BUN/Creatinine Ratio 14.9 10-20 Random Glucose 154 70-99 mg/dl Calcium Level 8.5 8.5-10.1 mg/dl Total Bilirubin 0.3 0.2-1 mg/dl Direct Bilirubin 0.1 0-0.2 mg/dl Aspartate Amino Transf (AST/SGOT) 21 15-37 U/L Alanine Aminotransferase (ALT/SGPT) 30 12-78 U/L Alkaline Phosphatase 87 45-117 U/L C-Reactive Protein 1.54 0-0.29 mg/dl Total Protein 7.2 6.4-8.2 gm/dl Albumin 3.6 3.4-5.0 gm/dl Diagnostic Radiology R Foot XR: cellulitis Impression Assessment and Plan 57 y/o M who was admitted for observation for R foot cellulitis R foot cellulitis: failed outpt cipro s/p puncture wound States last tetanus was 2011, given this is >5 yrs with a puncture wound, will redose today Vanco and monitor WBC elevated in ED on 05/22, now improved Afebrile Foot XR with cellulitis and neg for osteo, MRI pending given worsening sx CRP, ESR elevated DM: diet controlled, monitor HTN: continue home meds Hyperlipidemia: continue home meds GERD: continue home meds Anxiety: continue home meds CAD prevention: continue 81mg aspirin Other: Full code DM diet Lovenox for DVT proph Advanced Directives Existing Living Will: Yes 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
[2018-05-26] MEDS ORDERED: DIPHTHERIA/TETANUS/PERTUSSIS 0.5 ML SYR/VIAL IM. ONE (16:30)
[2018-05-26 17:56] VITALS: BP 117/78; PULSE 76; TEMP 36.5; O2SAT 97
[2018-05-26 18:00] VITALS: O2SAT 97
[2018-05-26] MEDS ORDERED: IV FLUIDS COMPLETED PRN (18:15)
--- NOTE | 2018-05-26 19:46 | Pharmacy Progress Note ---
Pharmacy Abx Initial Consult Date of Service May 26, 2018. Pharmacy Dosing Scope Date of Consult: 05/26/18 Consultation requested by: Dr. Nair Pharmacy is consulted to initiate Vancomycin IV dosing therapy, order appropriate labs and adjust drug dose/frequency. Subjective The patient is a 57 year old male admitted on May 26, 2018 at 16:19. Objective Height (Feet): 6 Height (Inches): 7.00 Weight (Kilograms): 126.100 Vital Signs (Past 12Hrs) Vital Signs Past 12 Hours Date Time Temp Pulse Resp B/P (MAP) Pulse Ox O2 Delivery O2 Flow Rate FiO2 05/26/18 18:00 97 Room Air 05/26/18 17:56 36.5 76 20 117/78 (91) 97 Room Air 05/26/18 17:24 76 18 133/80 98 05/26/18 16:15 71 18 100/75 96 Room Air 05/26/18 15:53 95 Room Air 05/26/18 14:23 72 20 94/57 95 Room Air 05/26/18 13:04 36.7 90 18 135/69 95 Room Air Lab Results (24Hrs) Laboratory Tests (24 Hours) Test 05/26/18 14:15 C-Reactive Protein 1.54 mg/dl (0-0.29) H Erythrocyte Sedimentation Rate 17 mm/hr (0-14) H White Blood Count 7.12 K/uL (4.8-10.8) Red Blood Count 4.04 M/uL (4.7-6.1) L Hemoglobin 12.2 g/dL (14.0-18.0) L Hematocrit 37.8 % (42-52) L Mean Corpuscular Volume 93.6 fL (80-100) Mean Corpuscular Hemoglobin 30.2 pg (25-34) Mean Corpuscular Hemoglobin Concent 32.3 g/dl (32-36) Platelet Count 272 K/uL (130-400) Mean Platelet Volume 9.8 fL (7.4-10.4) Neutrophils (%) (Auto) 59.9 % Lymphocytes (%) (Auto) 24.9 % Monocytes (%) (Auto) 7.3 % Eosinophils (%) (Auto) 7.2 % Basophils (%) (Auto) 0.4 % Neutrophils # (Auto) 4.27 K/uL (1.4-6.5) Lymphocytes # (Auto) 1.77 K/uL (1.2-3.4) Monocytes # (Auto) 0.52 K/uL (0.11-0.59) Eosinophils # (Auto) 0.51 K/uL (0-0.5) H Basophils # (Auto) 0.03 K/uL (0-0.2) Risk Factors for Resistance * Antimicrobial use within the last 90 days: Ciprofloxacin Assessment & Plan Assessment 57 year old male on empiric IV Vancomycin for R foot cellulitis * s/p puncture wound after stepping on a screw. Failed outpatient Ciprofloxacin. No osteomyelitis. * No renal impairment noted. Most recent sCr = 1.02 mg/dL with estimated CrCl > 100 mL/min. Estimated pharmacokinetic parameters: * Ke ~0.10/hr, T1/2 ~6.9 hrs * Patient received Vancomycin 2500mg (~20mg/kg) IV x 1 as a loading dose in the ED Plan Vancomycin IV * Maintenance dose: 1750 mg IV (~14 mg/kg) every 8 hours * Goal trough level for cellulitis (no osteomyelitis) : ~15 mcg/mL * Trough level ordered for 05/28 @ 0330 (prior to 5th dose and therefore should be reflective of steady state) Pharmacy will continue to follow and will adjust dose/frequency as necessary. Thank you.
[2018-05-26] MEDS: VANCOMYCIN IV 1,750 MG in SODIUM CHLORIDE 0.9% 500ML 500 ML IV SCH (20:13)
[2018-05-26] MEDS: ENOXAPARIN 40 MG/0.4 ML SYR SQ SCH (20:22)
[2018-05-26] MEDS: METOPROLOL TARTRATE 25 MG TAB PO SCH (21:00)
[2018-05-26 23:27] VITALS: BP 101/62; PULSE 62; TEMP 36.7; O2SAT 95
[2018-05-26 23:59] VITALS: O2SAT 95
[2018-05-27] MEDS: VANCOMYCIN IV 1,750 MG in SODIUM CHLORIDE 0.9% 500ML 500 ML IV SCH ×3 (03:58→19:39)
[2018-05-27 06:51] VITALS: BP 109/67; PULSE 64; TEMP 36.4; O2SAT 99
[2018-05-27 08:00] VITALS: O2SAT 99
[2018-05-27] MEDS: ATORVASTATIN 40 MG TAB PO SCH (08:09)
[2018-05-27] MEDS: ASPIRIN 81 MG ECTAB PO SCH (08:09)
[2018-05-27] MEDS: METOPROLOL TARTRATE 25 MG TAB PO SCH ×2 (08:09→19:45)
[2018-05-27] MEDS: LISINOPRIL 5 MG TAB PO SCH (08:10)
[2018-05-27] MEDS: SERTRALINE HCL 50 MG TAB PO SCH (08:10)
[2018-05-27] MEDS: PANTOprazole SOD 40 MG TAB PO SCH (08:10)
[2018-05-27 14:15] VITALS: BP 99/60; PULSE 66; TEMP 36.8; O2SAT 94
--- NOTE | 2018-05-27 15:41 | Progress Note ---
Subjective Date of Service: May 27, 2018. Subjective Pt evaluation today including: conversation w/ patient, physical exam, review of inpatient medication list Pain: less pain PO Intake: adequate Voiding: no voiding problems patient says that his foot is a lot better, redness receding, less swelling, less pain swelling is confined to the MP joint of first toe no fever, no chills, vitals stable excellent response to Vancomycin discussed with patient, likely d/c tomorrow AM on PO antibiotics, give another 24 hours of IV treatment Problem List Medical Problems: (1) Cellulitis of foot, right Status: Acute (2) Cellulitis of right foot Status: Acute (3) Hyperglycemia Status: Acute (4) Renal colic on right side Status: Acute (5) Type II diabetes mellitus Status: Acute Review of Systems Skin: + rash (right MP joint swollen, tender) All Other Systems: Reviewed and Negative Medications Current Inpatient Medications Medications (Trade) Dose Ordered Sig/Lisy Route Start Time Stop Time Status Last Admin Dose Admin Enoxaparin Sodium (Lovenox Inj) 40 mg Q24H SQ 05/26/18 22:00 06/25/18 21:59 Acetaminophen (Tylenol Tab) 650 mg Q4H PRN PO 05/26/18 16:15 06/25/18 16:14 05/27/18 12:28 650 MG Magnesium Hydroxide (Milk Of Magnesia Susp) 30 ml Q6H PRN PO 05/26/18 16:15 06/25/18 16:14 Ondansetron HCl (Zofran Inj) 4 mg Q6H PRN IV 05/26/18 16:15 06/25/18 16:14 Vancomycin HCl 1750 mg/Sodium Chloride 535 ml @ 200 mls/hr Q8H IV 05/26/18 20:00 06/05/18 19:59 05/27/18 11:26 200 MLS/HR Vancomycin HCl (Consult) 1 ea UD PRN N/A 05/26/18 16:15 06/25/18 16:14 Aspirin (Ecotrin Tab) 81 mg QAM PO 05/27/18 09:00 06/26/18 08:59 05/27/18 08:09 81 MG Atorvastatin Calcium (Lipitor Tab) 40 mg QAM PO 05/27/18 09:00 06/26/18 08:59 05/27/18 08:09 40 MG Lisinopril (Zestril Tab) 5 mg DAILY PO 05/27/18 09:00 06/26/18 08:59 05/27/18 08:10 5 MG Metoprolol Tartrate (Lopressor Tab) 25 mg BID PO 05/26/18 21:00 06/25/18 20:59 05/27/18 08:09 25 MG Pantoprazole Sodium (Protonix Tab) 40 mg QAM PO 05/27/18 09:00 06/26/18 08:59 05/27/18 08:10 40 MG Sertraline HCl (Zoloft Tab) 50 mg DAILY PO 05/27/18 09:00 06/26/18 08:59 05/27/18 08:10 50 MG Miscellaneous Information (Order Awaiting Action) 1 ea QS N/A 05/27/18 00:00 06/26/18 00:00 Miscellaneous (Iv Fluids Completed) 1 ea PRN PRN N/A 05/26/18 18:15 05/26/19 18:14 Objective Vital Signs Date Time Temp Pulse Resp B/P (MAP) Pulse Ox O2 Delivery O2 Flow Rate FiO2 05/27/18 14:15 36.8 66 17 99/60 (73) 94 Room Air 05/27/18 08:00 99 Room Air 05/27/18 06:51 36.4 64 20 109/67 (81) 99 Room Air 05/26/18 23:59 95 Room Air 05/26/18 23:27 36.7 62 18 101/62 (75) 95 Room Air 05/26/18 18:00 97 Room Air 05/26/18 17:56 36.5 76 20 117/78 (91) 97 Room Air 05/26/18 17:24 76 18 133/80 98 05/26/18 16:15 71 18 100/75 96 Room Air 05/26/18 15:53 95 Room Air Physical Exam General Appearance: WD/WN, no apparent distress Eyes: normal inspection, EOMI, sclerae normal ENT: normal ENT inspection, hearing grossly normal, pharynx normal Neck: supple, no adenopathy, no JVD, trachea midline Respiratory/Chest: chest non-tender, lungs clear, normal breath sounds, no respiratory distress, no accessory muscle use Cardiovascular: regular rate, rhythm, no edema, no gallop, no JVD, no murmur Abdomen: normal bowel sounds, non tender, soft, no organomegaly Extremities: no pedal edema, no calf tenderness, normal capillary refill, pelvis stable, + pertinent finding (swelling right first MP joint, decreased ROM due to swelling, tender to palpation) Neurologic/Psychiatric: physician locums urgent care II-XII nml as tested, no motor/sensory deficits, alert, normal mood/affect, oriented x 3 Skin: + rash (erythema over right first toe, erythema greatly reduced from the ankle and foot, receded from borders) Laboratory Results Last 24 Hours Test 05/26/18 18:23 Prothrombin Time 10.1 SECONDS Prothromb Time International Ratio 1.0 Assessment and Plan 57 y/o M who was admitted for observation for R foot cellulitis R foot cellulitis: failed outpt cipro s/p puncture wound Foot XR with cellulitis and neg for osteo, negative for retained foreign body States last tetanus was 2011, refused new tetanus shot excellent response to Vancomycin, continue today and tonight plan for PO antibiotics tomorrow and d/c home DM: diet controlled, monitor HTN: continue home meds Hyperlipidemia: continue home meds GERD: continue home meds Anxiety: continue home meds CAD prevention: continue 81mg aspirin Other: Full code DM diet Lovenox for DVT proph
[2018-05-27 16:00] VITALS: O2SAT 94
[2018-05-27 19:44] VITALS: BP 119/69; PULSE 67
[2018-05-27] MEDS: ENOXAPARIN 40 MG/0.4 ML SYR SQ SCH (19:45)
[2018-05-27 22:52] VITALS: BP 116/69; PULSE 68; TEMP 36.7; O2SAT 96
[2018-05-28] MEDS ORDERED: VANCOMYCIN TROUGH ONE (03:30)
[2018-05-28 04:29] LABS: CREATININE 0.97 mg/dl (0.60-1.40)
[2018-05-28] MEDS: VANCOMYCIN IV 1,750 MG in SODIUM CHLORIDE 0.9% 500ML 500 ML IV SCH (04:30)
[2018-05-28 07:26] VITALS: BP 128/74; PULSE 71; TEMP 36.5; O2SAT 97
[2018-05-28] MEDS: ATORVASTATIN 40 MG TAB PO SCH (07:47)
[2018-05-28] MEDS: ASPIRIN 81 MG ECTAB PO SCH (07:47)
[2018-05-28] MEDS: LISINOPRIL 5 MG TAB PO SCH (07:48)
[2018-05-28] MEDS: PANTOprazole SOD 40 MG TAB PO SCH (07:48)
[2018-05-28] MEDS: METOPROLOL TARTRATE 25 MG TAB PO SCH (07:48)
[2018-05-28] MEDS: SERTRALINE HCL 50 MG TAB PO SCH (07:49)
[2018-05-28] MEDS ORDERED: SULF800T23 PO (07:56)
--- NOTE | 2018-05-28 07:59 | Discharge Instructions ---
Discharge Instructions Date of Service May 28, 2018. Admission Reason for Admission: Cellulitis Of Right Foot Discharge Discharge Diagnosis / Problem: Cellulitis of right foot, due to puncture wound Discharge Goals Goal(s): Decrease discomfort, Improve disease control Activity Recommendations Activity Limitations: resume your previous activity . Instructions / Follow-Up Instructions / Follow-Up Medications: - BACTRIM: take twice a day for 10 days, this will complete treatment for cellulitis Cellulitis right foot due to puncture wound x-ray of foot showed no bone involvement, no foreign body cellulitis markedly improved on Vancomycin IV will complete 10 more days of Bactrim follow up with your primary care physician late this week (Karmen or Mon) FOLLOW UP - Dr. Greenwood this week, call to make appointment Current Hospital Diet Patient's current hospital diet: Diabetes Type 2 Diet Discharge Diet Recommended Diet: Diabetes Type 2 Diet Pending Studies Studies pending at discharge: no Work Instructions Return To Work: 1 day (may return on 05/29, no restrictions) Medical Emergencies . Who to Call and When: Medical Emergencies: If at any time you feel your situation is an emergency, please call 911 immediately. . Non-Emergent Contact Non-Emergency issues call your: Primary Care Provider Call Non-Emergent contact if: you have a fever, your pain is worsening, you have any medication questions . . "Provider Documentation" section prepared by Daniel Santoyo. . [place] Drug Monitoring Program Search Results: no issues identified
[2018-05-28 09:13] VITALS: BP 128/74; PULSE 71; TEMP 36.5; O2SAT 97
--- NOTE | 2018-05-28 22:48 | Discharge Summary ---
Discharge Summary Date of Service May 28, 2018. Discharge Summary Admission Date: May 26, 2018 at 16:19 Discharge Date: May 28, 2018 Discharge Disposition: Home Principal Diagnosis: Right foot cellulitis due to puncture wound Immunizations: Have You Had Influenza Vaccine: Yes Influenza Vaccine Date: Jun 20, 2012 History of Tetanus Vaccine?: Yes Tetanus Immunization Date: Jun 20, 2012 History of Pneumococcal: No History of Hepatitis B Vaccine: No Procedures: none Consultations: none Medication Reconciliation New Medications: Sulfamethoxazole-Trimethoprim (Bactrim Ds 800MG/160MG) 1 Tab Tab 1 TAB PO BID for 10 Days, #20 TAB Continued Medications: Aspirin (Aspirin EC Low Dose) 81 Mg Ectab 81 MG PO QAM for 30 Days Atorvastatin (Lipitor) 40 Mg Tab 40 MG PO QAM for 30 Days, TAB Lisinopril (Prinivil) 5 Mg Tab 5 MG PO DAILY, TAB Metoprolol Tartrate (Lopressor) 25 Mg Tab 25 MG PO BID for 30 Days, TAB Multiple Vitamins W/ Minerals (Preservision Areds) 1 Cap Cap 2 CAP PO DAILY Pantoprazole (Pantoprazole Sodium) 40 Mg Tab 40 MG PO QAM for 30 Days, TAB Sertraline (Zoloft) 50 Mg Tab 50 MG PO DAILY, TAB Discontinued Medications: Ciprofloxacin Hcl (Cipro) 500 Mg Tab 500 MG PO BID for 10 Days, #20 TAB Discharge Exam Patient feeling much better, even less swelling and less erythema in right foot. Minimal pain when standing. No fever, vitals stable. Patient feels ready for discharge. Discussed plan for Bactrim BID x 10 more days, follow up with PCP this week. Review of Systems: Constitutional: No fever, No chills, No sweats, No weight loss, No weakness , No fatigue, No problem reported Eyes: No worsening of vision, No eye pain, No redness, No discharge, No diplopia, No problem reported ENT: No hearing loss, No unusual epistaxis, No nasal symptoms, No sore throat, No tinnitus, No dental problems, No trouble swallowing, No problem reported Respiratory: No cough, No sputum, No wheezing, No shortness of breath, No dyspnea on exertion, No dyspnea at rest, No hemoptysis, No problem reported Cardiovascular: No chest pain, No orthopnea, No PND, No edema, No claudication, No palpitations, No problem reported Abdomen: No pain, No nausea, No vomiting, No diarrhea, No constipation, No GI bleeding, No problem reported Musculoskeletal: No joint pain, No muscle pain, No swelling, No calf pain, No problem reported Genitourinary - Male: No hematuria, No dysuria, No urinary frequency, No urinary urgency Neurologic: No memory loss, No paralysis, No weakness, No numbness/tingling , No vertigo, No balance problems, No problem reported Psychiatric: No depression symptoms, No anhedonism, No anxiety, No insomnia , No substance abuse, No problem reported Endocrine: No fatigue, No excessive thirst, No excessive urination, No problem reported Hematologic / Lymphatic: No abnormal bleeding/bruising, No clotting problems , No swollen lymph nodes, No night sweats, No problem reported Integumentary: + rash (right foot, plantar surface by MP joint) Physical Exam: General Appearance: WD/WN, no apparent distress Eyes: normal inspection, EOMI, sclerae normal ENT: normal ENT inspection, hearing grossly normal, pharynx normal Neck: supple, no adenopathy, no JVD, trachea midline Respiratory/Chest: chest non-tender, lungs clear, normal breath sounds, no respiratory distress, no accessory muscle use Cardiovascular: regular rate, rhythm, no edema, no gallop, no JVD, no murmur , normal peripheral pulses Abdomen / GI: normal bowel sounds, non tender, soft, no organomegaly Extremities: no calf tenderness, normal capillary refill, no pedal edema, normal range of motion, pelvis stable, + pertinent finding (mild swelling of right MP joint, much improved, more ROM in toe) Neurologic/Psychiatric: 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, no motor/sensory deficits , alert, normal mood/affect, normal reflexes, oriented x 3 Skin: + rash (right foot erythema greatly reduced, not warm, minimal pain) Hospital Course 57 y/o M who was admitted for observation for R foot cellulitis R foot cellulitis: failed outpt cipro s/p puncture wound Foot XR with cellulitis and neg for osteo, negative for retained foreign body States last tetanus was 2011, refused new tetanus shot excellent response to Vancomycin IV for two days erythema minimal, not warm, minimal pain, far less swelling around first MP joint, can move toe better will complete Bactrim DS x 10 days as outpatient follow up closely with PCP within the week DM: diet controlled, monitor HTN: continue home meds Hyperlipidemia: continue home meds GERD: continue home meds Anxiety: continue home meds CAD prevention: continue 81mg aspirin Other: Full code DM diet Lovenox for DVT proph Total Time Spent: Greater than 30 minutes This includes examination of the patient, discharge planning, medication reconciliation, and communication with other providers. Discharge Instructions Please refer to the electronic Patient Visit Report (Discharge Instructions) for additional information. Follow-Up Dr. Greenwood in one week Additional Copies To Hui Greenwood M.D.
== END 2018-05-28 10:30 | disposition home or self-care (01) ==
LOC: C.EDB 13:02 → C.MS2W 16:19 → EDBEDREQ 16:21 → ENRESERV 16:46
PROVIDERS: ADMIT Family Medicine; ATTEND Internal Medicine
DX: L03.115 Cellulitis of right lower limb (principal); I10 Essential (primary) hypertension; E78.5 Hyperlipidemia, unspecified; K21.9 Gastro-esophageal reflux disease without esophagitis; F41.9 Anxiety disorder, unspecified; E11.9 Type 2 diabetes mellitus without complications; Z79.899 Other long term (current) drug therapy; Z79.82 Long term (current) use of aspirin; Z88.8 Allergy status to other drugs, medicaments and biological substances

== ENCOUNTER 2019-10-02 04:59 | Inpatient (IN) ==
--- NOTE | 2019-09-04 15:19 | PAT Medication Instructions ---
Medication Instructions Date of Service September 04, 2019 Home Medications aspirin 81 mg PO HS lisinopril 5 mg PO QAM metoprolol tartrate 25 mg PO BID pantoprazole 40 mg PO QAM rosuvastatin [Crestor] 10 mg PO HS sertraline 50 mg PO QAM DO NOT take the morning of surgery lisinopril 5 mg PO QAM Take morning of surgery With a small sip of water, OTHERWISE NOTHING TO EAT OR DRINK AFTER MIDNIGHT: metoprolol tartrate 25 mg PO BID pantoprazole 40 mg PO QAM sertraline 50 mg PO QAM Take evening before surgery aspirin 81 mg PO HS metoprolol tartrate 25 mg PO BID rosuvastatin [Crestor] 10 mg PO HS Other Notes If you have any questions please call us at [phone] or [phone] or [phone] or [phone]
--- NOTE | 2019-09-05 10:31 | Anesthesiology Consultation ---
Date of Service September 05, 2019 Assessment & Plan (1) Encounter for pre-operative examination: - Check BSG AM DOS Chart Review Chart Review: Acceptable Risk for Surgery and Patient seen in Pre Admission Testing Teaching & Discussion Pre-Anesthesia Teaching/Discussion Notes: Instructed NPO after midnight before surgery,except medications with 15 cc of water. Medication instructions provided according to the PAT guidelines. History Surgery Operation Date: 10/02/19 08:20 Proposed Procedures p Bilateral Total Knee Arthroplasty - Natanael Quan DO Height/Weight Height: 6 ft 7 in Weight: 128.2 kg Allergies Allergy/AdvReac Type Severity Reaction Status Date / Time nitroglycerin Allergy Severe SHORTNESS Verified 09/04/19 09:00 OF BREATH adhesive Allergy Mild RASH Verified 09/04/19 09:00 Medications Home Medications Medication Instructions Recorded Confirmed Last Taken aspirin 81 mg PO HS 09/04/19 09/04/19 Unknown lisinopril 5 mg PO QAM 09/04/19 09/04/19 Unknown metoprolol tartrate 25 mg PO BID 09/04/19 09/04/19 Unknown pantoprazole 40 mg PO QAM 09/04/19 09/04/19 Unknown rosuvastatin [Crestor] 10 mg PO HS 09/04/19 09/04/19 Unknown sertraline 50 mg PO QAM 09/04/19 09/04/19 Unknown PreserVision AREDS 2 tab PO DAILY 09/05/19 09/05/19 Unknown Stool Softener 1 tab PO DAILY 09/05/19 09/05/19 Unknown Past Medical History Medical History Anxiety Diabetes mellitus, type 2 diet controlled GERD (gastroesophageal reflux disease) controlled Hyperlipidemia Hypertension Kidney stones hx Macular degeneration Obesity Osteoarthritis Spinal stenosis Exercise / Class Metabolic Activity II 4-5 Yardwork/Stairs/Walk up hill (one flight of stairs (no chest pain/no sob)) Past Family History Family History Daughter Pulmonary embolism after MVA Deep vein thrombosis after MVA Other No family history of adverse response to anesthesia Past Surgical History Surgical History History of appendectomy History of colonoscopy History of laminectomy lumbar Past Anesthesia History No Hx of Anesthesia Complications (except post-op nausea) History of PONV No Hx of Motion Sickness and History of PONV (+ post-op nausea) Social History Smoking Status: Never smoker Do You Dip or Chew Tobacco: No Hx Alcohol Use: No Hx Substance Use: No substance use type: does not use Review of Systems Reflux controlled. Patient denies chest pain, shortness of breath, dyspnea on exertion, cough, wheezing, palpitations. Physical Exam Vital Signs VITALS BP 120/76 P 64 TEMP 98.0 SP02 96%RA RESP 18 PHYSICAL Full neck and c-spine range of motion. Full TMJ range of motion. TMD 4 finger breaths Mallampati Score 3 Dentition: intact, several crowns on molars Lungs: clear throughout to auscultation Cardiac: regular rate and rhythm, no murmurs noted Spine: normal Carotid arteries: negative bruit Extremities: no edema Testing Laboratory Results 09/05/19 10:55 09/05/19 10:55 PT 10.3 Seconds (9.0-12.0) 09/05/19 10:55 INR 1.0 (0.9-1.1) 09/05/19 10:55 APTT 24.3 Seconds (21.0-31.0) 09/05/19 10:55 Urine Color Yellow 09/05/19 10:55 Urine Appearance Clear (Clear) 09/05/19 10:55 Urine pH 5.5 (4.5-7.5) 09/05/19 10:55 Ur Specific [place] 1.020 (1.000-1.030) 09/05/19 10:55 Urine Protein Negative (Negative) 09/05/19 10:55 Urine Glucose (UA) Negative (Negative) 09/05/19 10:55 Urine Ketones Negative (Negative) 09/05/19 10:55 Urine Nitrite Negative (Negative) 09/05/19 10:55 Ur Leukocyte Esterase Negative (Negative) 09/05/19 10:55 Blood Type A Positive 09/05/19 10:55 Antibody Screen NEGATIVE 09/05/19 10:55 09/05/19 10:55 Urine Culture - Final Urine,Clean Catch No growth - less than 1,000 colonies/mL. Electrocardiogram Date: 09/05/19 Findings: + NSR @ (61) Chest X-Ray Date: 09/05/19 Findings: + NAD Stress Test Date: 11/04/15 Type: exercise Stress EKG/ECHO was "normal." No significant valvular disease. 8.5 METS. 107% MPHR. EF 55-60%. Mild LAD.
--- NOTE | 2019-09-05 11:18 | XRay Report ---
XR chest Pre-admission PA/Lat CLINICAL HISTORY: 59 years-old Male presenting with preoperative assessment. TECHNIQUE: PA and lateral views of the chest were obtained. COMPARISON: 08/18/2015. FINDINGS: Cardiomediastinal silhouette normal. Lungs and pleural spaces clear. Degenerative changes of the thor acic spine. Upper abdomen normal. IMPRESSION: 1. No acute cardiopulmonary disease. Electronically signed by: Andrew Hubbard M.D. 09/05/2019 11:16 AM
[2019-09-05 12:02] LABS: Basophils # (auto) 0.04 K/uL (0-0.2); Basophils % (auto) 0.5 %; Eosinophils # (auto) 0.37 K/uL (0-0.5); Eosinophils % (auto) 5.1 %; Hematocrit (blood only) 42.5 % (42-52); Hemoglobin 14.1 g/dL (14.0-18.0); Immature Granulocytes # (auto) 0.02 K/uL (0.00-0.02); Immature Granulocytes % (auto) 0.3 %; Lymphocytes # (auto) 1.58 K/uL (1.2-3.4); Lymphocytes % (auto) 21.7 %; Mean Corpuscular Hemoglobin 31.3 pg (25-34); Mean Corpuscular Hgb Conc 33.2 g/dL (32-36); Mean Corpuscular Volume 94.2 fL (80-100); Mean Platelet Volume 10.4 fL (7.4-10.4); Monocytes # (auto) 0.63 K/uL (0.11-0.59); Monocytes % (auto) 8.6 %; Neutrophils # (auto) 4.65 K/uL (1.4-6.5); Neutrophils % (auto) 63.8 %; Platelet Count 256 K/uL (130-400); RDW Coefficient of Variation 13.3 % (11.5-14.5); RDW Standard Deviation 45.9 fL (36.4-46.3); Red Blood Count 4.51 M/uL (4.7-6.1); White Blood Count 7.29 K/uL (4.8-10.8)
[2019-09-05 12:08] LABS: Partial Thromboplastin Ratio 0.9; Partial Thromboplastin Time 24.3 Seconds (21.0-31.0); Prothrombin Time 10.3 Seconds (9.0-12.0)
[2019-09-05 12:11] LABS: Appearance Urine Clear (Clear); Bilirubin Urine Negative (Negative); Blood Urine Negative (Negative); Color Urine Yellow; Glucose Urine UA Negative (Negative); Ketones Urine Negative (Negative); Leukocyte Esterase Urine Negative (Negative); Nitrite Urine Negative (Negative); Protein Urine Negative (Negative); Urobilinogen Urine Negative (Negative); pH Urine 5.5 (4.5-7.5)
[2019-09-05 12:16] LABS: Calcium 9.4 mg/dl (8.5-10.1); Creatinine Clr Calc Pharmacy 131.1 ml/min; Est GFR (African American) 106.5; Est GFR (Non-African American) 91.9
--- NOTE | 2019-09-11 16:09 | History & Physical Report ---
Date of Service September 11, 2019 date of surgery: 10/02/19 Assessment & Plan (1) Degenerative arthritis of knee, bilateral: Further care discussed with Fabian and at this point in time has failed conservative measures and would like to proceed with Bilateral total knee replacements at [facility]. His plan on discharge will be home with home health physical therapy. DVT prophalaxis with TEDs, SCDs and will also place Xarelto for a month postop. Patient will have follow up appointment in our office two weeks post op for staple removal and re-evaluation. Patient otherwise has no other questions or concerns. History of Present Illness Chief Complaint: bilateral knee pain Primary Care Provider: Hui Greenwood MD Mr Arreola is a 59 year old male who complains of bilateral knee pain, left greater than the right and presents for pre-op evaluation prior to Bilateral total knee replacements. He presents with pain and decreased rom in both of his knees. He states that the symptoms have been chronic non-traumatic. The symptoms occur constantly with intermittent worsening. Currently the patient states that the symptoms are moderate and The pain is described as aching. He rates his current pain as 3/10, worst is 6/10. The symptoms are aggravated by descending stairs, ascending stairs, kneeling, walking and squatting. he has had prior joseph isone injections without any relief. Allergies Allergy/AdvReac Type Severity Reaction Status Date / Time nitroglycerin Allergy Severe SHORTNESS Verified 09/04/19 09:00 OF BREATH adhesive Allergy Mild RASH Verified 09/04/19 09:00 Home Medications Home Medications Medication Instructions Recorded Confirmed Type aspirin 81 mg PO HS 09/04/19 09/04/19 History lisinopril 5 mg PO QAM 09/04/19 09/04/19 History metoprolol tartrate 25 mg PO BID 09/04/19 09/04/19 History pantoprazole 40 mg PO QAM 09/04/19 09/04/19 History rosuvastatin [Crestor] 10 mg PO HS 09/04/19 09/04/19 History sertraline 50 mg PO QAM 09/04/19 09/04/19 History PreserVision AREDS 2 tab PO DAILY 09/05/19 09/05/19 History Stool Softener 1 tab PO DAILY 09/05/19 09/05/19 History Past Med/Surg History Medical History Anxiety Diabetes mellitus, type 2 diet controlled GERD (gastroesophageal reflux disease) controlled Hyperlipidemia Hypertension Kidney stones hx Macular degeneration Obesity Osteoarthritis Spinal stenosis Surgical History History of appendectomy History of colonoscopy History of laminectomy lumbar Family History Daughter Pulmonary embolism after MVA Deep vein thrombosis after MVA Other No family history of adverse response to anesthesia Social History Preferred Language: Armenian Communication Ability: Effective [employer] Required: No Beliefs That Will Affect Care: None Current Living Situation: Spouse Other Information That Helps Us Care for You: No Feels Safe at Home: Yes Safety Concerns: Feels Safe At This Time Smoking Status: Never smoker Do You Dip or Chew Tobacco: No ; Second Hand Exposure: No ; Tobacco Cessation Education Requested by Patient: No Hx Alcohol Use: No Hx Substance Use: No Review of Systems Review of Systems: All systems reviewed & are unremarkable except as noted in HPI & below Constitutional: no fever, no chills and no sweats Respiratory: no cough and no dyspnea Cardiovascular: no chest pain, no dyspnea and no orthopnea Gastrointestinal: no abdominal pain, no nausea and no vomiting Musculoskeletal: as per Subjective / HPI Physical Exam Physical Exam: Ht: 6ft 7in Wt: 128kg BP: 122/74 Pulse: 78 Constitutional: WD/WN, vitals as above no acute distress Respiratory: normal respiratory effort, lungs clear to auscultation no respiratory distress, no labored breathing and does not use accessory muscles Cardiovascular: RRR, no murmur, no edema Gastrointestinal (Abdomen): normal bowel sounds, soft, nontender, no hepatosplenomegaly Musculoskeletal: Bilateral knee Physical exam Overall patient has neutral alignment bilaterally, there is no atrophy or ecchymosis noted, she does have +2 suprapatellar effusion in both of her knees, she has tenderness to both medial and lateral joint lines to her right knee, more medial sided tenderess to the left knee. negative patellar apprehension, she does have crepitation noted to both knees with active ROM. bilateral knees stable to valgus and varus stress, devon negative, posterior drawer negative. Range of motion right knee 0/3/110, left knee 0/115. her lower extremities are neurovascularly intact, calf soft and non tender, DP pulse +2 bilaterally. Results & Data Laboratory Results Laboratory Results WBC 7.29 K/uL (4.8-10.8) 09/05/19 10:55 RBC 4.51 M/uL (4.7-6.1) L 09/05/19 10:55 Hgb 14.1 g/dL (14.0-18.0) 09/05/19 10:55 Hct 42.5 % (42-52) 09/05/19 10:55 MCV 94.2 fL (80-100) 09/05/19 10:55 MCH 31.3 pg (25-34) 09/05/19 10:55 MCHC 33.2 g/dL (32-36) 09/05/19 10:55 RDW Std Deviation 45.9 fL (36.4-46.3) 09/05/19 10:55 RDW Coeff of Samir 13.3 % (11.5-14.5) 09/05/19 10:55 Plt Count 256 K/uL (130-400) 09/05/19 10:55 MPV 10.4 fL (7.4-10.4) 09/05/19 10:55 Immature Gran % (Auto) 0.3 % 09/05/19 10:55 Neut % (Auto) 63.8 % 09/05/19 10:55 Lymph % (Auto) 21.7 % 09/05/19 10:55 [place] % (Auto) 8.6 % 09/05/19 10:55 Eos % (Auto) 5.1 % 09/05/19 10:55 Baso % (Auto) 0.5 % 09/05/19 10:55 Immature Gran # (Auto) 0.02 K/uL (0.00-0.02) 09/05/19 10:55 Neut # (Auto) 4.65 K/uL (1.4-6.5) 09/05/19 10:55 Lymph # (Auto) 1.58 K/uL (1.2-3.4) 09/05/19 10:55 [place] # (Auto) 0.63 K/uL (0.11-0.59) H 09/05/19 10:55 Eos # (Auto) 0.37 K/uL (0-0.5) 09/05/19 10:55 Baso # (Auto) 0.04 K/uL (0-0.2) 09/05/19 10:55 PT 10.3 Seconds (9.0-12.0) 09/05/19 10:55 INR 1.0 (0.9-1.1) 09/05/19 10:55 APTT 24.3 Seconds (21.0-31.0) 09/05/19 10:55 PTT Ratio 0.9 09/05/19 10:55 Sodium 138 mmol/L (136-145) 09/05/19 10:55 Potassium 4.0 mmol/L (3.5-5.1) 09/05/19 10:55 Chloride 105 mmol/L (98-107) 09/05/19 10:55 Carbon Dioxide 29 mmol/L (21-32) 09/05/19 10:55 Anion Gap 4.0 (3-11) 09/05/19 10:55 BUN 14 mg/dl (7-18) 09/05/19 10:55 Creatinine 0.90 mg/dl (0.6-1.4) 09/05/19 10:55 Est Cr Clr Drug Dosing 131.1 ml/min 09/05/19 10:55 Est GFR ( Amer) 106.5 09/05/19 10:55 Est GFR (Non-Af Amer) 91.9 09/05/19 10:55 BUN/Creatinine Ratio 15.0 (10-20) 09/05/19 10:55 Glucose 111 mg/dl (70-99) H 09/05/19 10:55 Calcium 9.4 mg/dl (8.5-10.1) 09/05/19 10:55 Urine Color Yellow 09/05/19 10:55 Urine Appearance Clear (Clear) 09/05/19 10:55 Urine pH 5.5 (4.5-7.5) 09/05/19 10:55 Ur Specific [place] 1.020 (1.000-1.030) 09/05/19 10:55 Urine Protein Negative (Negative) 09/05/19 10:55 Urine Glucose (UA) Negative (Negative) 09/05/19 10:55 Urine Ketones Negative (Negative) 09/05/19 10:55 Urine Blood Negative (Negative) 09/05/19 10:55 Urine Nitrite Negative (Negative) 09/05/19 10:55 Urine Bilirubin Negative (Negative) 09/05/19 10:55 Urine Urobilinogen Negative (Negative) 09/05/19 10:55 Ur Leukocyte Esterase Negative (Negative) 09/05/19 10:55 Blood Type A Positive 09/05/19 10:55 Antibody Screen NEGATIVE 09/05/19 10:55 Diagnostic Findings Bilateral Knee X-ray: bilateral knee series confirms advanced degenerative changes bilateral knees, greatest medial compartments and patellofemoral joints, showing joint space narrowing, osteophyte formation and subchondral sclerosis. no acute bony pathology noted.
[2019-10-02] MEDS ORDERED: FAMOTIDINE 20 MG TAB PO SCH (06:00)
[2019-10-02] MEDS ORDERED: ROPIVACAINE 0.5% HCL/PF 150 MG, BUPIVACAINE 0.5% MPF 30 ML, EPINEPHrine 30MG/30ML (OR U... INSTIL SCH (06:00)
[2019-10-02] MEDS ORDERED: dexAMETHasone 4 MG TAB PO SCH (06:00)
[2019-10-02] MEDS ORDERED: CeleBREX 200 MG CAP PO SCH (06:00)
[2019-10-02] MEDS ORDERED: CEFAZOLIN 3000MG 72.5 ML IV SCH (06:00)
[2019-10-02] MEDS ORDERED: TRANEXAMIC ACID 1,000 MG **IV Pre-op IV SCH (06:00)
[2019-10-02] MEDS ORDERED: GABAPENTIN 600 MG DOSE PO SCH (06:00)
[2019-10-02] MEDS ORDERED: TRANEXAMIC ACID 1,000 MG **IV Intra-op IV SCH (06:00)
[2019-10-02] MEDS ORDERED: LR 500ML BOLUS, THEN 15ML/HR IV SCH (06:00)
[2019-10-02] MEDS ORDERED: ACETAMINOPHEN 500 MG TAB PO SCH (06:00)
[2019-10-02] MEDS ORDERED: BUPIVACAINE/EPINEPHRINE 0.25% 1:200,000 30 ML VIAL ONE (06:43)
[2019-10-02] MEDS ORDERED: BUPIVACAINE 0.5 % 5 MG/1 ML PF 10ML VIAL ONE (06:43)
[2019-10-02] MEDS ORDERED: DEXAMETHASONE SOD INJ 4 MG/ML VIAL ONE (06:44)
[2019-10-02] MEDS ORDERED: MIDAZOLAM HCL 1 MG/ML 2ML VIAL ONE (06:44)
[2019-10-02] MEDS ORDERED: fentaNYL citrate 100 MCG/2 ML VIAL ONE ×2 (06:44→07:29)
[2019-10-02] MEDS ORDERED: ORTHO JOINT ANESTHETIC ONE (06:55)
[2019-10-02] MEDS ORDERED: BACITRACIN INJ 50,000 UNIT VIAL ONE (06:55)
--- NOTE | 2019-10-02 07:03 | History & Physical Bridge Note ---
Date of Service October 02, 2019 History & Physical Bridge Note I have examined the patient, reviewed the History & Physical and in the interval since the performance of the History & Physical I have noted the following changes of clinical significance: no changes noted
[2019-10-02] MEDS ORDERED: ONDANSETRON INJ 2 MG/ML 2 ML VIAL IV PRN (07:17)
[2019-10-02] MEDS ORDERED: ATROPINE SULFATE 0.1 MG/ML 10ML SYR IV PRN (07:17)
[2019-10-02] MEDS ORDERED: fentaNYL citrate 100 MCG/2 ML VIAL IV PRN (07:17)
[2019-10-02] MEDS ORDERED: ePHEDrine sulfate 50 MG/ML AMP IV PRN (07:17)
[2019-10-02] MEDS ORDERED: GLYCOPYRROLATE 0.2 MG/ML VIAL ONE (07:22)
[2019-10-02] MEDS ORDERED: PROPOFOL IV EMULSION 10 MG/ML 20 ML VIAL IV ONE (08:58)
[2019-10-02] MEDS ORDERED: ONDANSETRON INJ 2 MG/ML 2 ML VIAL ONE (08:58)
[2019-10-02] MEDS ORDERED: LIDOCAINE HCL 2% 2 ML VIAL/AMP(20MG/ML) INFIL ONE (08:58)
--- NOTE | 2019-10-02 09:23 | Operative Report ---
Post Operative Report Pre & Post Diagnosis Operation Date: 10/02/19 07:00 Pre-Op Diagnosis: BILATERAL KNEE OSTEOARTHRITIS Post-Op Diagnosis: BILATERAL KNEE OSTEOARTHRITIS I identified the patient and participated in the time-out.: Yes Procedure Operation Date: 10/02/19 07:00 Actual Procedures p Bilateral Total Knee Arthroplasty(Bilateral) utilizing [employer] journey 2 patient matched total knee arthroplasty right size 8 femur 7 tibia 11 poly-38 oval patella left size 9 femur 7 tibia 9 poly-38 oval patella- Natanael Quan DO Surgeon Natanael Quan DO Resident Care Aide Blood primary PA Estimated Blood Loss 10 Findings Consistent with Post-Op Diagnosis Patient presents with severe end-stage tricompartmental degenerative joint disease with varus alignment bilateral knees with [id number] changes subchondral cystic changes eburnated bone marginal osteophytes moderate to large effusion no response to conservative management Specimens Bone and cartilage Drains Medium bore Hemovac Complications none Disposition Accompanied Patient To Recovery: No Disposition: Recovery Room Indications Patient presents for bilateral total knee arthroplasties and failed attempts at conservative management bleeding physical therapy anti-inflammatories relative rest activity modification corticosteroid injections Visco supplementation as above intraoperative findings were noted. Description of Procedure After proper identification of the patientAfter proper prepping and draping of the bilateral lower extremities, an anterior midline incision was made over the region of the extensor extensor mechanism of the left knee. After meticulous hemostasis was obtained and maintained in subcutaneous tissues a medial parapatellar incision was made The patella was subluxed lateralward the medial lateral gutter were cleaned from any hypertrophic synovitis and scar tissue of the distal femoral block was placed and the distal femoral osteotomy cut was made subsequently the chamfers anterior and posterior osteotomy cuts were made utilizing the 4-in-1 block the tibia was subsequently subluxed anteriorward m edial and ateral meniscal remnants were excised in their entirety remnants of the anterior and posterior cruciate ligaments were excised in their entirety excellent exposure of the proximal tibia was obtained the tibial osteotomy guide was placed on the proximal tibial osteotomy cut was made once again the knee was irrigated with copious amounts of sterile saline solution the patella was subsequently everted lateralward thickened scar tissue around the patella was removed the patella was subsequently cut utilizing a freehand technique and was drilled prepared for final preparation and placement of patella socially flexion-extension gaps were checked and the equal and symmetric trials were placed to the appropriate femoral and tibial trials with poly-spacer being placed for equal flexion and extension gaps and full range of motion including extension to 0 and flexion to 140 the trial components after having been taken to recovery range of motion was subsequently removed meticulous hemostasis was obtained and maintained subsequently a knee block injection of joint cocktail including ropivacaine 0.5% 150 mg. Bupivacaine 0.5% epinephrine 1-200,030 mL's toradol 30 mg dexamethasone 4 mg ketamine 10 mg clonidine 100 micrograms normal saline solution 30 mg was infiltrated into the soft tissues of the posterior knee medial lateral gutters and periosteal synovium special attention was paid to protect neurovascular structures at all times subsequently trial components having been removed the knee was irrigated with sterile saline solution. debris was removed the proximal tibia was subsequently prepared and was made ready for the placement of the tibial component tibial component was also cemented and tamped into position the femoral component was subsequently placed and cemented in the position the patellar component was subsequently cemented in position because hemostasis once again obtained and maintained wound having been thoroughly irrigated with debridement and debridement lavage was performed as well as a medial parapatellar incision closed with #1 Vicryl in interrupted fashion subcutaneous was closed with #2 Vicryl skin was closed with skin clips Next, an anterior midline incision was made over the region of the extensor extensor mechanism of the right knee. After meticulous hemostasis was obtained and maintained in subcutaneous tissues a medial parapatellar incision was made The patella was subluxed lateralward the medial lateral gutter were cleaned from any hypertrophic synovitis and scar tissue of the distal femoral block was placed and the distal femoral osteotomy cut was made subsequently the chamfers anterior and posterior osteotomy cuts were made utilizing the 4-in-1 block the tibia was subsequently subluxed anteriorward medial and ateral meniscal remnants were excised in their entirety remnants of the anterior and posterior cruciate ligaments were excised in their entirety excellent exposure of the proximal tibia was obtained the tibial osteotomy guide was placed on the proximal tibial osteotomy cut was made once again the knee was irrigated with copious amounts of sterile saline solution the patella was subsequently everted lateralward thickened scar tissue around the patella was removed the patella was subsequently cut utilizing a freehand technique and was drilled prepared for final preparation and placement of patella socially flexion-extension gaps were checked and the equal and symmetric trials were placed to the appropriate femoral and tibial trials with poly-spacer being placed for equal flexion and extension gaps and full range of motion including extension to 0 and flexion to 140 the trial components after having been taken to recovery range of motion was subsequently removed meticulous hemostasis was obtained and maintained subsequently a knee block injection of joint cocktail including ropivacaine 0.5% 150 mg. Bupivacaine 0.5% epinephrine 1-200,030 mL's toradol 30 mg dexamethasone 4 mg ketamine 10 mg clonidine 100 micrograms normal saline solution 30 mg was infiltrated into the soft tissues of the posterior knee medial lateral gutters and periosteal synovium special attention was paid to protect neurovascular structures at all times subsequently trial components having been removed the knee was irrigated with sterile saline solution. debris was removed the proximal tibia was subsequently prepared and was made ready for the placement of the tibial component tibial component was also cemented and tamped into position the femoral component was subsequently placed and cemented in the position the patellar component was subsequently cemented in position because hemostasis once again obtained and maintained wound having been thoroughly irrigated with debridement and debridement lavage was performed as well as a medial parapatellar incision closed with #1 Vicryl in interrupted fashion subcutaneous was closed with #2 Vicryl skin was closed with skin clips.. PA-C was necessary for prepping and drapping as well as wound closure of deep fascia Sub cutaneous tissue and skin and was necessary for the case. A sterile compressive dressings were placed, patient was taken to recovery in stable condition of report dictated by Kadeem I attest to the content of the Intraoperative Record and any orders documented therein. Any exceptions are noted below. I attest to the content of the Intraoperative Record and any orders documented therein. Any exceptions are noted below.
--- NOTE | 2019-10-02 10:43 | Anesthesiology Progress Note ---
Date of Service October 02, 2019 Anesthesia Post Procedure Vital Signs Vital Signs: Temp Pulse Pulse Resp BP Pulse Ox 10/02/19 10:35 82 15 127/79 96 10/02/19 10:25 78 12 129/67 98 10/02/19 10:15 71 13 128/74 99 10/02/19 10:05 36.5 C 76 18 130/70 92 10/02/19 05:37 36.8 C 64 18 143/81 H 97 Transfer of Care Handoff Completed per policy Notes Mental Status: alert / awake / arousable Patient Amnestic to Procedure: Yes Nausea / Vomiting: adequately controlled Pain: adequately controlled Airway Patency, RR, SpO2: stable & adequate BP & HR: stable & adequate Hydration State: stable & adequate Neuraxial Anesthesia: was administered and sensory block is resolving Anesthetic Complications: no major complications apparent
--- NOTE | 2019-10-02 10:59 | XRay Report ---
LEFT KNEE 2 VIEWS History: Left total knee arthroplasty. Degenerative arthritis. Postop. FINDINGS: The patient is status post a left total knee arthroplasty. The hardware is intact. No fract ure or dislocation. Skin vamsi and surgical drains are in place. IMPRESSION: Left total knee arthroplasty. No evidence for hardware complication. ACT 112: Negative or not required by law. Electronically signed by: Marques Head M.D. 10/02/2019 10:58 AM
--- NOTE | 2019-10-02 10:59 | XRay Report ---
XR knee RT 1 or 2V routine CLINICAL HISTORY: 59 years-old Male presenting with Surgical Post Op. TECHNIQUE: Frontal and crosstable lateral views of the right knee were obtained. COMPARISON: None. FINDINGS: Postsurgical changes of total right knee arthroplasty with patellar resurfacing. Expected intra-artic ular and soft tissue emphysema. A surgical drains in place. Overlying skin vamsi. No malalignment. No periprosthetic fracture or lucency. IMPRESSION: Expected postsurgical appearance status post total right knee arthroplasty with patellar resurfacing. ACT 112: Negative or not required by law. Electronically signed by: Andrew Hubbard M.D. 10/02/2019 10:58 AM
[2019-10-02] MEDS ORDERED: MAGNESIUM HYDROXIDE SUSP 30 ML UDC PO PRN (11:12)
[2019-10-02] MEDS ORDERED: NALOXONE HCL 0.4 MG/1 ML VIAL/CARP IV PRN (11:12)
[2019-10-02] MEDS ORDERED: bisacodyL 10 MG SUPP PR PRN (11:12)
[2019-10-02] MEDS: SODIUM CHLORIDE 0.9% 1000ML 1,000 ML IV SCH ×2 (13:33→23:30)
[2019-10-02] MEDS: ACETAMINOPHEN 500 MG TAB PO SCH ×2 (13:35→22:34)
[2019-10-02] MEDS: OXYCODONE HCL IR 5 MG TAB (IMMEDIATE RELEASE) PO PRN ×3 (14:07→19:28)
[2019-10-02] MEDS: CEFAZOLIN 2000MG 2,000 MG/15 ML SYR IV SCH ×2 (14:08→22:34)
[2019-10-02] MEDS ORDERED: PHARMACY GLYCEMIC MGMT CONSULT PRN (17:07)
[2019-10-02] MEDS ORDERED: DiphenhydrAMINE HCL 50 MG/ML VIAL IV PRN (17:24)
[2019-10-02] MEDS ORDERED: CARBOHYDRATES FOR HYPOGLYCEMIA PO PRN (17:30)
[2019-10-02] MEDS ORDERED: GLUCAGON FOR INJ 1 MG VIAL IM PRN (17:30)
[2019-10-02] MEDS ORDERED: GLUCOSE 40% GEL 15 GM TUBE PO PRN (17:30)
[2019-10-02] MEDS ORDERED: GLUCOSE 10 TABS/TUBE PO PRN (17:30)
[2019-10-02] MEDS ORDERED: DEXTROSE 50% 50 ML SYRINGE IV PRN (17:30)
--- NOTE | 2019-10-02 17:33 | Pharmacy Report ---
Glycemic Control Consultation - Date of Service October 02, 2019 - Scope Scope: Glycemic Pharmacist consulted by Bimal Rubi PA-C on 10/02/19 for glycemic control and to write orders per [facility] inpatient glycemic control protocol - Objective Weight: 127.278 kg Accuchecks BSG (last 24hrs): 10/02/19 10/02/19 05:34 10:45 POC Glucose 123 H 141 H - Recent Pertinent Medications Outpatient Anti-diabetic Regimen: * No outpatient medications; T2DM is diet-controlled * A1c = unknown; ordered with AM labs The patient is currently receiving: * Currently, patient is not receiving any inpatient medications for T2DM Risk Factors for Insulin Resistance: * Steroids: * received 8 mg dexamethasone preop 10/02 * Recent Surgery: * bilateral total knee arthroplasties 10/02 * Diet: * ordered regular diet - Assessment & Plan Assessment & Plan: ASSESSMENT: * 59 yo M admitted to undergo b/l TKA's today * T2DM control is unknown given no A1c * No T2DM medications as outpatient, diet-controlled * Patient has been snacking post-op which may increase BSG along with pre-op dose of dexamethasone * A1c ordered for tomorrow morning PLAN FOR INPATIENT GLYCEMIC CONTROL: * Basal insulin * None at this time * Bolus insulin * NovoLog per scale ACHS or Q6hrs while NPO * Goal Range: Low 110 mg/dL - High 140 mg/dL * Correction Factor: 25 mg/dL/unit * Nutritional / Prandial insulin per carb ratio of 1 unit per 8 grams CHO consumed DISCHARGE RECOMMENDATIONS: * pending A1c results in AM * Please note that the plan above was derived based on current level of insulin resistance and hospital stress. These recommendations are appropriate for inpatient admission only. Plan of care upon discharge will need to be reassessed to avoid potential outpatient hypo/hyperglycemia. Thank you.
[2019-10-02] MEDS: INSULIN ASPART 100 UNITS/ML 3 ML PEN SC SCH ×2 (18:09→20:18)
[2019-10-02] MEDS: SENNA 8.6 MG TAB PO SCH (20:14)
[2019-10-02] MEDS: ROSUVASTATIN CALCIUM 10 MG TAB PO SCH (20:14)
[2019-10-02] MEDS: DOCUSATE SODIUM 100 MG CAP PO SCH (20:15)
[2019-10-02] MEDS: METOPROLOL TARTRATE 25 MG TAB PO SCH (20:15)
[2019-10-02] MEDS ORDERED: INSULIN ASPART 100 UNITS/ML 3 ML PEN SC SCH (21:00)
[2019-10-02] MEDS: HYDROmorphone INJ 0.5 MG/0.5 ML SYR IV PRN (22:39)
[2019-10-03] MEDS: ACETAMINOPHEN 500 MG TAB PO SCH ×3 (05:28→21:21)
[2019-10-03] MEDS: OXYCODONE HCL IR 5 MG TAB (IMMEDIATE RELEASE) PO PRN ×3 (05:29→19:31)
[2019-10-03] MEDS ORDERED: COUGH DROP (SUGAR FREE) LOZ 24 LOZ/1 BOX BUCCAL PRN (05:33)
[2019-10-03] MEDS ORDERED: COUGH DROP (SUGAR FREE) LOZ 24 LOZ/1 BOX BUCCAL ONE (05:49)
[2019-10-03 05:56] LABS: Hematocrit (blood only) 32.7 % (42-52); Hemoglobin 10.7 g/dL (14.0-18.0); Mean Corpuscular Hemoglobin 31.2 pg (25-34); Mean Corpuscular Hgb Conc 32.7 g/dL (32-36); Mean Corpuscular Volume 95.3 fL (80-100); Mean Platelet Volume 9.8 fL (7.4-10.4); Platelet Count 225 K/uL (130-400); RDW Coefficient of Variation 13.3 % (11.5-14.5); RDW Standard Deviation 46.2 fL (36.4-46.3); Red Blood Count 3.43 M/uL (4.7-6.1); White Blood Count 16.18 K/uL (4.8-10.8)
[2019-10-03 06:26] LABS: Estimated Average Glucose 146 mg/dl; Hemoglobin A1C 6.7 % (4.5-5.6)
[2019-10-03 06:29] LABS: BUN Creatinine Ratio 18.2 (10-20); Creatinine Clr Calc Pharmacy 117.5 ml/min; Est GFR (African American) 93.7; Est GFR (Non-African American) 80.9; Potassium 4.2 mmol/L (3.5-5.1)
[2019-10-03] MEDS: HYDROmorphone INJ 0.5 MG/0.5 ML SYR IV PRN ×2 (08:13→21:27)
[2019-10-03] MEDS: CEROVITE ADV FORMULA TAB PO SCH (08:47)
[2019-10-03] MEDS: SERTRALINE HCL 50 MG TABLET PO SCH (08:47)
[2019-10-03] MEDS: DOCUSATE SODIUM 100 MG CAP PO SCH ×2 (08:47→20:11)
[2019-10-03] MEDS: RIVAROXABAN 10 MG TABLET PO SCH (08:48)
[2019-10-03] MEDS: PANTOprazole 40 MG TAB PO SCH (08:48)
[2019-10-03] MEDS: INSULIN ASPART 100 UNITS/ML 3 ML PEN SC SCH ×4 (08:59→21:23)
[2019-10-03] MEDS ORDERED: MULTIVITAMIN TAB PO SCH (09:00)
--- NOTE | 2019-10-03 09:46 | Orthopedic Progress Note ---
Date of Service October 03, 2019 Assessment & Plan (1) S/P total knee arthroplasty: POD#1 Bilateral TKA -PT/OT -Pain management -DVT prophylaxis-SCDs, TEDs, Xarelto -D/C planning-uncertain at this time. He is considering inpatient rehab depending on how PT goes -AM labs-Hemoglobin at 10.7 from 14 preop. Acute blood loss anemia likely due to surgical loss vs dilutional effect. Subjective Resting in bed comfortably. Had a lot of pain when up ambulating and had some nausea due to the pain but has resolved. No other complaints at this time. Denies dizziness, light headedness, nausea, vomiting. Review of Systems Review of Systems: All systems reviewed & are unremarkable except as noted in HPI & below Physical Exam Physical Exam: Dressing to bilateral legs c/d/i. No calf tenderness bilaterally. Toes are mobile. Good dorsiflexion bilaterally. N/V status and sensation intact bilaterally. Results & Data Vital Signs (Past 12 Hours) Vital Signs Temp Pulse Resp BP Pulse Ox 10/03/19 08:15 72 20 112/60 10/03/19 07:06 36.7 C 60 18 100/64 97 10/03/19 03:49 36.9 C 78 16 108/62 96 10/02/19 23:13 37.1 C 78 16 112/61 92 Laboratory Results H & H 09/05/19 10/03/19 Range/Units 10:55 05:45 Hgb 14.1 10.7 L (14.0-18.0) g/dL Hct 42.5 32.7 L (42-52) % Coagulation 09/05/19 Range/Units 10:55 INR 1.0 (0.9-1.1)
[2019-10-03] MEDS: lisinopriL 5 MG TAB PO SCH (10:41)
[2019-10-03] MEDS: METOPROLOL TARTRATE 25 MG TAB PO SCH ×2 (10:41→21:28)
[2019-10-03] MEDS ORDERED: KETOROLAC 30 MG/ML VIAL ONE (12:11)
[2019-10-03] MEDS ORDERED: KETOROLAC 30 MG/ML VIAL IV ONE (12:45)
[2019-10-03] MEDS ORDERED: KETOROLAC 30 MG/ML VIAL IV SCH (13:00)
--- NOTE | 2019-10-03 15:17 | Ultrasound Report ---
BILATERAL LOWER EXTREMITY VENOUS DOPPLER HISTORY: Acute pain and spelling of the bilateral lower extremities r/o dvt COMPARISON STUDY: Knee radiographs of same day FINDINGS: There is normal compressibility, flow, and augmentation within the bilateral lower extremit y deep venous systems. IMPRESSION: No DVT within the right or left lower extremity. ACT 112: Negative or not required by law. Electronically signed by: Beltran Xavier M.D. 10/03/2019 3:16 PM
--- NOTE | 2019-10-03 15:27 | Pharmacy Report ---
Pharmacy Glycemic Short Note 2 - Date of Service October 03, 2019 - Glycemic Short BSG Results (Last 24 hours): 10/02/19 10/02/19 10/03/19 17:35 20:16 05:45 Glucose 141 H POC Glucose 146 H 155 H 10/03/19 10/03/19 08:22 12:01 Glucose POC Glucose 117 H 111 H OUTPATIENT ANTIDIABETIC REGIMEN: * None- Diet controlled ASSESSMENT: * 59 y/o M admitted for B/L TKA- today is POD 1. HbA1c = 6.7% indicates patient is diabetic however is not on anti-diabetic meds at home. * Pt was started on Novolog bolus with CF and CR based on weight and stress factor (using SQ insulin calculator) between 1 and 2. * Fasting BSG today WNL. Post prandial BSGs yesterday were elevated d/t steroid induced hyperglycemia but this effect should be wearing off now. * Novolog carb ratio is loosened with dinner today. PLAN FOR INPATIENT GLYCEMIC CONTROL: * Basal insulin: none * Bolus insulin * NovoLog per scale ACHS or Q6hrs while NPO * Goal Range: Low 110 mg/dL - High 140 mg/dL * Correction Factor: 25 mg/dL/unit * Nutritional / Prandial insulin per carb ratio of 1 unit per 10 grams CHO consumed PLAN FOR DISCHARGE: * HbA1c = 6.7% today. This indicates that patient is a diabetic. He is diet- controlled at home and not on any meds. * Recommend follow up with outpatient provider at regular intervals.
[2019-10-03] MEDS: KETOROLAC 30 MG/ML VIAL IV SCH (18:57)
[2019-10-03] MEDS: SENNA 8.6 MG TAB PO SCH (20:12)
[2019-10-03] MEDS: ROSUVASTATIN CALCIUM 10 MG TAB PO SCH (20:12)
[2019-10-03] MEDS: MoRPHine SULFATE CR 15 MG TABCR PO SCH (20:14)
[2019-10-04] MEDS: KETOROLAC 30 MG/ML VIAL IV SCH (00:59)
[2019-10-04 05:31] LABS: Basophils # (auto) 0.01 K/uL (0-0.2); Basophils % (auto) 0.1 %; Eosinophils # (auto) 0.04 K/uL (0-0.5); Eosinophils % (auto) 0.4 %; Hematocrit (blood only) 30.8 % (42-52); Hemoglobin 10.1 g/dL (14.0-18.0); Immature Granulocytes # (auto) 0.04 K/uL (0.00-0.02); Immature Granulocytes % (auto) 0.4 %; Lymphocytes % (auto) 16.5 %; Mean Corpuscular Hemoglobin 31.8 pg (25-34); Mean Corpuscular Hgb Conc 32.8 g/dL (32-36); Mean Corpuscular Volume 96.9 fL (80-100); Mean Platelet Volume 9.6 fL (7.4-10.4); Monocytes # (auto) 1.15 K/uL (0.11-0.59); Monocytes % (auto) 11.2 %; Neutrophils # (auto) 7.35 K/uL (1.4-6.5); Neutrophils % (auto) 71.4 %; Platelet Count 208 K/uL (130-400); RDW Coefficient of Variation 13.5 % (11.5-14.5); RDW Standard Deviation 48.1 fL (36.4-46.3); Red Blood Count 3.18 M/uL (4.7-6.1); White Blood Count 10.29 K/uL (4.8-10.8)
[2019-10-04] MEDS: ACETAMINOPHEN 500 MG TAB PO SCH ×3 (05:41→21:14)
[2019-10-04 05:55] LABS: BUN Creatinine Ratio 18.2 (10-20); Calcium 8.1 mg/dl (8.5-10.1); Creatinine Clr Calc Pharmacy 121.2 ml/min; Est GFR (African American) 97.3; Est GFR (Non-African American) 83.9
[2019-10-04] MEDS: OXYCODONE HCL IR 5 MG TAB (IMMEDIATE RELEASE) PO PRN ×3 (07:55→17:58)
[2019-10-04] MEDS: MoRPHine SULFATE CR 15 MG TABCR PO SCH ×2 (07:55→20:14)
[2019-10-04] MEDS: METOPROLOL TARTRATE 25 MG TAB PO SCH ×2 (08:37→20:14)
[2019-10-04] MEDS: CEROVITE ADV FORMULA TAB PO SCH (08:37)
[2019-10-04] MEDS: DOCUSATE SODIUM 100 MG CAP PO SCH ×2 (08:37→20:14)
[2019-10-04] MEDS: lisinopriL 5 MG TAB PO SCH (08:37)
[2019-10-04] MEDS: RIVAROXABAN 10 MG TABLET PO SCH (08:38)
[2019-10-04] MEDS: SERTRALINE HCL 50 MG TABLET PO SCH (08:38)
[2019-10-04] MEDS: PANTOprazole 40 MG TAB PO SCH (08:38)
[2019-10-04] MEDS: INSULIN ASPART 100 UNITS/ML 3 ML PEN SC SCH ×4 (08:41→21:23)
--- NOTE | 2019-10-04 09:23 | Orthopedic Progress Note ---
Date of Service October 04, 2019 Assessment & Plan (1) S/P total knee arthroplasty: POD#2 Bilateral TKA -PT/OT -Pain management -DVT prophylaxis-SCDs, TEDs, Xarelto -D/C planning-uncertain at this time. He is considering inpatient rehab depending on how PT goes. We will see how he does today. -AM labs-Hemoglobin at 10.1 from 14 preop. Acute blood loss anemia likely due to surgical loss vs dilutional effect. Appears stable. Subjective Patient currently lying in bed awake and alert. He is getting ready to do physical therapy. States the staff at the bedside and ate his breakfast with his knees dangling over the bedside. That seemed to go fairly well. He states that he still having a fair amount of pain with ambulation. He has not yet tried to get up to ambulate since starting his MS Contin last night. Denies any shortness of breath, chest pain. No new complaints. Physical Exam Physical Exam: Ilene wound vacs are intact and functioning. No overt drainage noted on the dressing. Mild swelling of the knees consistent with surgery. Calves are soft and nontender. Neurovascular intact. Toes are mobile. Results & Data Vital Signs (Past 12 Hours) Vital Signs Temp Pulse Pulse Resp BP Pulse Ox 10/04/19 07:44 37.3 C 83 16 136/71 98 10/03/19 23:30 37.5 C 84 16 130/73 96 10/03/19 21:24 88 127/70 Laboratory Results Laboratory Results WBC 10.29 K/uL (4.8-10.8) 10/04/19 05:17 RBC 3.18 M/uL (4.7-6.1) L 10/04/19 05:17 Hgb 10.1 g/dL (14.0-18.0) L 10/04/19 05:17 Hct 30.8 % (42-52) L 10/04/19 05:17 MCV 96.9 fL (80-100) 10/04/19 05:17 MCH 31.8 pg (25-34) 10/04/19 05:17 MCHC 32.8 g/dL (32-36) 10/04/19 05:17 RDW Std Deviation 48.1 fL (36.4-46.3) H 10/04/19 05:17 RDW Coeff of Samir 13.5 % (11.5-14.5) 10/04/19 05:17 Plt Count 208 K/uL (130-400) 10/04/19 05:17 MPV 9.6 fL (7.4-10.4) 10/04/19 05:17 Immature Gran % (Auto) 0.4 % 10/04/19 05:17 Neut % (Auto) 71.4 % 10/04/19 05:17 Lymph % (Auto) 16.5 % 10/04/19 05:17 [place] % (Auto) 11.2 % 10/04/19 05:17 Eos % (Auto) 0.4 % 10/04/19 05:17 Baso % (Auto) 0.1 % 10/04/19 05:17 Immature Gran # (Auto) 0.04 K/uL (0.00-0.02) H 10/04/19 05:17 Neut # (Auto) 7.35 K/uL (1.4-6.5) H 10/04/19 05:17 Lymph # (Auto) 1.70 K/uL (1.2-3.4) 10/04/19 05:17 [place] # (Auto) 1.15 K/uL (0.11-0.59) H 10/04/19 05:17 Eos # (Auto) 0.04 K/uL (0-0.5) 10/04/19 05:17 Baso # (Auto) 0.01 K/uL (0-0.2) 10/04/19 05:17 PT 10.3 Seconds (9.0-12.0) 09/05/19 10:55 INR 1.0 (0.9-1.1) 09/05/19 10:55 APTT 24.3 Seconds (21.0-31.0) 09/05/19 10:55 PTT Ratio 0.9 09/05/19 10:55 Sodium 140 mmol/L (136-145) 10/04/19 05:17 Potassium 4.0 mmol/L (3.5-5.1) 10/04/19 05:17 Chloride 110 mmol/L (98-107) H 10/04/19 05:17 Carbon Dioxide 32 mmol/L (21-32) 10/04/19 05:17 Anion Gap -2.0 (3-11) L 10/04/19 05:17 BUN 18 mg/dl (7-18) 10/04/19 05:17 Creatinine 0.97 mg/dl (0.6-1.4) 10/04/19 05:17 Est Cr Clr Drug Dosing 121.2 ml/min 10/04/19 05:17 Est GFR ( Amer) 97.3 10/04/19 05:17 Est GFR (Non-Af Amer) 83.9 10/04/19 05:17 BUN/Creatinine Ratio 18.2 (10-20) 10/04/19 05:17 Glucose 120 mg/dl (70-99) H 10/04/19 05:17 POC Glucose 122 (70-99) H 10/03/19 20:20 Estimat Average Glucose 146 mg/dl 10/03/19 05:45 Hemoglobin A1c 6.7 % (4.5-5.6) H 10/03/19 05:45 Calcium 8.1 mg/dl (8.5-10.1) L 10/04/19 05:17 Urine Color Yellow 09/05/19 10:55 Urine Appearance Clear (Clear) 09/05/19 10:55 Urine pH 5.5 (4.5-7.5) 09/05/19 10:55 Ur Specific [place] 1.020 (1.000-1.030) 09/05/19 10:55 Urine Protein Negative (Negative) 09/05/19 10:55 Urine Glucose (UA) Negative (Negative) 09/05/19 10:55 Urine Ketones Negative (Negative) 09/05/19 10:55 Urine Blood Negative (Negative) 09/05/19 10:55 Urine Nitrite Negative (Negative) 09/05/19 10:55 Urine Bilirubin Negative (Negative) 09/05/19 10:55 Urine Urobilinogen Negative (Negative) 09/05/19 10:55 Ur Leukocyte Esterase Negative (Negative) 09/05/19 10:55 Blood Type A Positive 09/05/19 10:55 Antibody Screen NEGATIVE 09/05/19 10:55
[2019-10-04] MEDS ORDERED: KETOROLAC TROMETHAMINE 15 MG/ML VIAL IV PRN (10:06)
[2019-10-04] MEDS ORDERED: SODIUM CHLORIDE 0.9% 1000ML 500 ML IV ONE (10:30)
[2019-10-04] MEDS: ONDANSETRON INJ 2 MG/ML 2 ML VIAL IV PRN ×2 (12:40→17:58)
--- NOTE | 2019-10-04 15:15 | Pharmacy Report ---
Pharmacy Glycemic Short Note 2 - Date of Service October 04, 2019 - Glycemic Short BSG Results (Last 24 hours): 10/03/19 10/03/19 10/04/19 17:24 20:20 05:17 Glucose 120 H POC Glucose 118 H 122 H 10/04/19 10/04/19 08:06 11:51 Glucose POC Glucose 157 H 115 H OUTPATIENT ANTIDIABETIC REGIMEN: * None- Diet controlled ASSESSMENT: 10/04: No changes made in Novolog dosing today. Fasting and post-prandial BSGs at goal with current parameters. 10/03: * 59 y/o M admitted for B/L TKA- today is POD 1. HbA1c = 6.7% indicates patient is diabetic however is not on anti-diabetic meds at home. * Pt was started on Novolog bolus with CF and CR based on weight and stress factor (using SQ insulin calculator) between 1 and 2. * Fasting BSG today WNL. Post prandial BSGs yesterday were elevated d/t steroid induced hyperglycemia but this effect should be wearing off now. * Novolog carb ratio is loosened with dinner today. PLAN FOR INPATIENT GLYCEMIC CONTROL: * Basal insulin: none * Bolus insulin * NovoLog per scale ACHS or Q6hrs while NPO * Goal Range: Low 110 mg/dL - High 140 mg/dL * Correction Factor: 25 mg/dL/unit * Nutritional / Prandial insulin per carb ratio of 1 unit per 10 grams CHO consumed PLAN FOR DISCHARGE: * HbA1c = 6.7% today. This indicates that patient is a diabetic. He is diet- controlled at home and not on any meds. * Goal A1c < 7%. Since patient is already at goal, would not recommend starting meds currently but follow up with outpatient provider.
[2019-10-04] MEDS: ROSUVASTATIN CALCIUM 10 MG TAB PO SCH (20:14)
[2019-10-04] MEDS: SENNA 8.6 MG TAB PO SCH (20:14)
[2019-10-05] MEDS: ACETAMINOPHEN 500 MG TAB PO SCH ×3 (06:13→22:27)
--- NOTE | 2019-10-05 06:43 | Orthopedic Progress Note ---
Date of Service October 05, 2019 Assessment & Plan (1) S/P total knee arthroplasty: POD#3 Bilateral TKA -PT/OT -Pain management -DVT prophylaxis-SCDs, TEDs, Xarelto -D/C planning-uncertain at this time. He is considering inpatient rehab depending on how PT goes. If there was no insurance approval yesterday, he will not be able to be discharged until [id number]. Subjective Patient currently lying in bed awake and alert. States he tried to sit up in the bed today with his legs off to the side and the pain in each knee worsened and he got light headed and felt like he was going to pass out. He was feeling confident for today because he did well with walking last night but today the pain is worse this AM. No CP, LH. Physical Exam Constitutional: WD/WN, vitals as above no acute distress Musculoskeletal: Gait: + antalgic gait Knee: + effusion (mild bilateral knee) and + surgical incision (Bilateral YVONNE dressings in place.); knee normal to inspection, no deformity, no skin erythema, no ecchymosis and no surgical drain present Results & Data Vital Signs (Past 12 Hours) Vital Signs Temp Pulse Resp BP Pulse Ox 10/04/19 23:08 37.6 C H 87 16 132/75 95 10/04/19 19:12 126/56 L
[2019-10-05] MEDS: OXYCODONE HCL IR 5 MG TAB (IMMEDIATE RELEASE) PO PRN ×4 (06:56→22:33)
[2019-10-05] MEDS: ONDANSETRON INJ 2 MG/ML 2 ML VIAL IV PRN (06:56)
[2019-10-05] MEDS: RIVAROXABAN 10 MG TABLET PO SCH (08:30)
[2019-10-05] MEDS: lisinopriL 5 MG TAB PO SCH (08:30)
[2019-10-05] MEDS: MoRPHine SULFATE CR 15 MG TABCR PO SCH ×2 (08:30→20:53)
[2019-10-05] MEDS: DOCUSATE SODIUM 100 MG CAP PO SCH ×2 (08:31→20:49)
[2019-10-05] MEDS: METOPROLOL TARTRATE 25 MG TAB PO SCH ×2 (08:31→20:50)
[2019-10-05] MEDS: PANTOprazole 40 MG TAB PO SCH (08:31)
[2019-10-05] MEDS: CEROVITE ADV FORMULA TAB PO SCH (08:31)
[2019-10-05] MEDS: SERTRALINE HCL 50 MG TABLET PO SCH (08:31)
[2019-10-05] MEDS: INSULIN ASPART 100 UNITS/ML 3 ML PEN SC SCH ×4 (08:33→20:53)
[2019-10-05] MEDS: ROSUVASTATIN CALCIUM 10 MG TAB PO SCH (20:49)
[2019-10-05] MEDS: SENNA 8.6 MG TAB PO SCH (20:50)
[2019-10-05 23:02] LABS: Hematocrit (blood only) 30.6 % (42-52); Mean Corpuscular Hemoglobin 31.1 pg (25-34); Mean Platelet Volume 10.1 fL (7.4-10.4); Platelet Count 214 K/uL (130-400); RDW Coefficient of Variation 13.3 % (11.5-14.5); RDW Standard Deviation 46.4 fL (36.4-46.3); Red Blood Count 3.22 M/uL (4.7-6.1); White Blood Count 12.21 K/uL (4.8-10.8)
[2019-10-05 23:06] LABS: Mean Corpuscular Hgb Conc 32.7 g/dL (32-36)
--- NOTE | 2019-10-05 23:12 | Hospitalist Consultation ---
Date of Consultation October 05, 2019 Assessment & Plan (1) Orthostatic hypotension: 59-year-old male was admitted on 02 October 2019 for scheduled bilateral total knee replacements. Medicine was consulted in the late evening on October 05 for periods of hypotension. Orthostatic hypotension: Noted episodes of transient neuro symptoms and concurrent hypotension upon standing. This evenings symptoms and hypotension resolved within minutes without acute treatment. Reported episodes of the same since his surgery. - Overnight, noted to have BP as low as 79/48 which resolved within minutes with no acute treatment. Transiently tachycardic as well. Has been afebrile postop. Hb has trended down to 10.1 on last check on Dec. Does not appear dehydrated by labs or exam/UOP. EKG in Aug 2019 was NSR. - Exact cause is unclear, though his mild anemia is likely contributory. Will check CBC (stable) and BMP (slightly low Na) overnight. Ordered EKG for AM. Will hold his home metoprolol for now. Consider holding vs taper of his sertraline. Consider adding some salt to diet. Further workup deferred to day team. Bilateral knee replacements, bilateral knee arthritis: Management per orthopedics. Constipation: No noted bowel movement since surgery. Narcotics likely con tributing. Already on scheduled Colace and senna. Discussed with patient he may wish to start milk of magnesia versus MiraLAX during the day tomorrow. Ongoing medical issues: - Hypertension, hyperlipidemia: Continue home aspirin, lisinopril, Crestor. Holding home metoprolol. - GERD: Continue pantoprazole. - Anxiety: Continue sertraline, though consider tapering/stopping this. - Diabetes: 19Dec HbA1c was 6.7. Presently diet-controlled at home. Some minimal hyperglycemia here. Continue insulin sliding scale. Code status: Full code. Diet: DM 2. DVT prophy: Per orthopedics (presently on Xarelto). PT/OT: Ongoing. Disbo: Admitted to [facility]. Ortho is primary. Medicine on consult. (2) S/P total knee arthroplasty: (3) Degenerative arthritis of knee, bilateral: (4) Constipation: (5) Hypertension: (6) Hyperlipidemia: (7) GERD (gastroesophageal reflux disease): (8) Anxiety: (9) Diabetes mellitus, type 2: Supervising Physician Co-Signing Physician Notes Patient seen and examined, chart reviewed, case discussed with Dr. Brandon and agree with his assessment and plan as documented above. Briefly, patient is a 59-year-old male status post bilateral TKA performed on 10/01/2019. Surgery well-tolerated, no complications identified. Patient has had considerable orthostatic hypotension and near syncopal events since his surgery. On physical exam he is afebrile, hemodynamically stable, no acute distress HEENTnormocephalic/atraumatic, pupils equal and reactive to light, neck supple, moist mucous membranes Heart+ S1/S2, regular, no murmurs/rubs/gallops Lungsequal air entry bilaterally, soft, nontender/nondistended Abdomen+ bowel sounds, soft, nontender/nondistended Extremitiesdressings in place Labs and images reviewed. Hgb = 10, HCT = 30.6 which is near prior values. Sodium = 135 Assessment/[id number] male status post bilateral TKA with ongoing orthostatic hypotension. Labs with stable anemia, mild leukocytosis with WBC = 12.21 (up from 10.29 on 10/04/2019). Etiology uncertain. Question fluid shifts, medication effects, blood loss? -Continue IV hydration EKG in the morning We will hold metoprolol for now Plan as above History of Present Illness Reason for Consultation: Hypotension/tachycardia Requesting Physician: Dr. Dent Attending Physician: Natanael Quan, History of Present Illness 59-year-old male was admitted on 02 October 2019 for scheduled bilateral total knee replacements. Medicine was consulted in the late evening on October 05 for periods of hypotension. Spoke with patient and his nurse at bedside. Patient says ever since postop he has had episodes in which, after attempts at standing, he has the feeling of acute dizziness, lightheadedness, sometimes visual narrowing, and feels off balance. This causes him to have to lay back down in bed immediately. All of these symptoms quickly resolve over the next few minutes. Patient says he has never had this prior to the surgery. He denies concurrent chest pain, shortness of breath, nausea or vomiting, or other overt painful symptoms during these times. A similar episode happened this evening, prompting this consultation. Per his bedside nurse, he was noted to be transiently hypotensive as low as 79/48 with some reflex tachycardia. However, this resolved to 121/59 within a couple of minutes upon lying supine again. His bedside nurse says he believes previous episodes of transient hypotension were not documented. At the time of this H&P, patient says all of his acute symptoms have resolved. He believes he has remained well-hydrated during this time. He continues to complain of 8/10 knee pain for which she is getting narcotic pain meds. He also notes he has not had a bowel movement since surgery. - Past medical history includes hypertension, hyperlipidemia, diet-controlled diabetes, GERD, anxiety, right foot cellulitis - Past surgical history includes bilateral knee replacement as above. - Social history includes denying smoking or alcohol use. Lives at home with family. Allergies Allergy/AdvReac Type Severity Reaction Status Date / Time nitroglycerin Allergy Severe SHORTNESS Verified 10/02/19 05:33 OF BREATH adhesive Allergy Mild RASH Verified 10/02/19 05:33 Home Medications Home Medications Medication Instructions Recorded Confirmed Type aspirin 81 mg PO HS 09/04/19 10/02/19 History lisinopril 5 mg PO QAM 09/04/19 10/02/19 History metoprolol tartrate 25 mg PO BID 09/04/19 10/02/19 History pantoprazole 40 mg PO QAM 09/04/19 10/02/19 History rosuvastatin [Crestor] 10 mg PO HS 09/04/19 10/02/19 History sertraline 50 mg PO QAM 09/04/19 10/02/19 History PreserVision AREDS 2 tab PO DAILY 09/05/19 10/02/19 History Stool Softener 1 tab PO DAILY 09/05/19 10/02/19 History Patient History Medical History Anxiety Diabetes mellitus, type 2 diet controlled GERD (gastroesophageal reflux disease) controlled Hyperlipidemia Hypertension Kidney stones hx Macular degeneration Obesity Osteoarthritis Spinal stenosis Surgical History History of appendectomy History of colonoscopy History of laminectomy lumbar Family History Daughter Pulmonary embolism after MVA Deep vein thrombosis after MVA Other No family history of adverse response to anesthesia Social History Preferred Language: Welsh Communication Ability: Effective 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 ENT: Denies any ear/nose/throat pain or difficulty speaking or swallowing Respiratory: Denies any dyspnea, cough, hemoptysis Cardiovascular: Denies any chest pain or feeling of edema Gastrointestinal: Denies any abdominal pain, nausea/vomiting/diarrhea Musculoskeletal: Transiently feels lightheaded and weak during episodes which quickly resolves. Complains of ongoing bilateral knee pain. Skin: Denies any known acute rashes or lesions Neuro: Transient dizziness and lightheadedness with episodes, quickly resolves. Otherwise denies focal neuro deficits. Physical Exam Physical Exam: GENERAL: Awake, alert, well-appearing, in no acute distress. HENT: Normocephalic, atraumatic. Oropharynx unremarkable. EYES: Normal conjunctiva. Sclera non-icteric. NECK: Inspection normal. Supple and full ROM. No nuchal rigidity. CARDIAC: +S1S2 RRR, no murmurs. RESPIRATORY: Clear to auscultation. No wheezes or rales. Normal respiratory effort. GI: +BS, soft, non-distended. No tenderness to palpation. No rebound or guarding. No appreciable masses. EXTREMITIES: No pedal edema or calf tenderness. Bilateral anterior knees have c/d/I dressings in place. No distal edema. Distal bilateral lower extremity sensation intact. NEURO: No gross neuro deficits. Results & Data Vital Signs (Past 12 Hours) Vital Signs Temp Pulse Resp BP Pulse Ox 10/05/19 21:51 102 H 121/59 L 98 10/05/19 21:49 101 H 105/65 98 10/05/19 21:47 115 H 79/48 L 97 10/05/19 15:45 37.5 C 91 H 17 122/73 94 Medications Administered Current Inpatient Medications Acetaminophen (Tylenol) 1,000 mg PO Q8 SHANAE Stop: 11/01/19 13:59 Last Admin: 10/05/19 22:27 Dose: 1,000 mg Documented by: Bisacodyl (Dulcolax) 10 mg WI DAILY PRN PRN Reason: Constipation Stop: 11/01/19 11:11 Dextrose (Dextrose 50%) 25 - 50 ml IV UD PRN; Protocol PRN Reason: Hypoglycemia Protocol Stop: 11/01/19 17:29 Diphenhydramine HCl (Benadryl) 50 mg IV HS PRN PRN Reason: Sleep Stop: 11/01/19 17:23 Docusate Sodium (Colace) 100 mg PO BID COUNTS INCLUDE 234 BEDS AT THE [facility] Stop: 11/01/19 20:59 Last Admin: 10/05/19 20:49 Dose: 100 mg Documented by: Glucagon (Glucagen) 1 mg IM UD PRN; Protocol PRN Reason: Hypoglycemia Protocol Stop: 11/01/19 17:29 Glucose (Glucose 40%) 15 - 30 gm PO UD PRN; Protocol PRN Reason: Hypoglycemia Protocol Stop: 11/01/19 17:29 Glucose (Dex4 Glucose) 4 - 8 tabs PO UD PRN; Protocol PRN Reason: Hypoglycemia Protocol Stop: 11/01/19 17:29 Hydromorphone HCl (Dilaudid) 0.5 mg IV Q4H PRN PRN Reason: Pain Stop: 10/16/19 11:11 Last Admin: 10/03/19 21:27 Dose: 0.5 mg Documented by: Insulin Aspart (Novolog Flexpen) 0 units SC ACHS COUNTS INCLUDE 234 BEDS AT THE [facility] Stop: 11/01/19 17:59 Last Admin: 10/05/19 20:53 Dose: Not Given Documented by: Ketorolac Tromethamine (Toradol) 15 mg IV Q6H PRN PRN Reason: Pain Stop: 10/09/19 10:14 Last Admin: 10/04/19 12:40 Dose: 15 mg Documented by: Lisinopril (Zestril) 5 mg PO QAM COUNTS INCLUDE 234 BEDS AT THE [facility] Stop: 11/02/19 08:59 Last Admin: 10/05/19 08:30 Dose: 5 mg Documented by: Magnesium Hydroxide (Milk Of Magnesia) 30 ml PO Q6H PRN PRN Reason: Constipation Stop: 11/01/19 11:11 Menthol (Nice) 1 lula BUCCAL PRN PRN PRN Reason: Sore Throat Stop: 11/02/19 05:32 Metoprolol Tartrate (Lopressor) 25 mg PO BID COUNTS INCLUDE 234 BEDS AT THE [facility] Stop: 11/01/19 20:59 Last Admin: 10/05/19 20:50 Dose: 25 mg Documented by: Miscellaneous (Carbohydrates For Hypoglycemia) 15 - 30 gm PO UD PRN PRN Reason: Hypoglycemia Treatment Stop: 11/01/19 17:29 Miscellaneous Information (Consult Glycemic Management Pharmacy) 1 ea N/A UD PRN PRN Reason: Consult Stop: 11/01/19 17:06 Morphine Sulfate (Ms Contin) 15 mg PO Q12H COUNTS INCLUDE 234 BEDS AT THE [facility] Stop: 10/17/19 19:59 Last Admin: 10/05/19 20:53 Dose: 15 mg Documented by: Multivitamins/Minerals (Multivitamin W/ Minerals Tab) 1 tab PO DAILY COUNTS INCLUDE 234 BEDS AT THE [facility] Stop: 11/02/19 08:59 Last Admin: 10/05/19 08:31 Dose: 1 tab Documented by: Naloxone HCl (Narcan) 0.1 mg IV Q5M PRN PRN Reason: Oversedation/Resp Depression Stop: 11/01/19 11:11 Ondansetron HCl (Zofran) 4 mg IV Q6H PRN PRN Reason: Nausea And Vomiting Stop: 11/01/19 11:11 Last Admin: 10/05/19 06:56 Dose: 4 mg Documented by: Oxycodone HCl (Roxicodone Immediate Rel) 5 - 10 mg PO Q4H PRN PRN Reason: Pain Stop: 10/16/19 11:11 Last Admin: 10/05/19 22:33 Dose: 10 mg Documented by: Pantoprazole Sodium (Protonix) 40 mg PO QAM COUNTS INCLUDE 234 BEDS AT THE [facility] Stop: 11/02/19 08:59 Last Admin: 10/05/19 08:31 Dose: 40 mg Documented by: Rivaroxaban (Xarelto) 10 mg PO DAILY COUNTS INCLUDE 234 BEDS AT THE [facility] Stop: 11/02/19 08:59 Last Admin: 10/05/19 08:30 Dose: 10 mg Documented by: Rosuvastatin Calcium (Crestor) 10 mg PO [facility] Stop: 11/01/19 20:59 Last Admin: 10/05/19 20:49 Dose: 10 mg Documented by: Sennosides (Senokot) 17.2 mg PO HS COUNTS INCLUDE 234 BEDS AT THE [facility] Stop: 01/17/20 20:59 Last Admin: 10/05/19 20:50 Dose: 17.2 mg Documented by: Sertraline [facility] ([facility]oloft) [facility] Stop: 11/02/19 08:59 Last Admin: 10/05/19 08:31 Dose: 50 mg Documented by: Resident Activity Tracking Resident Involvement: Resident Care Provided Care Provided: Adult Hospital Medicine
[2019-10-05 23:18] LABS: BUN Creatinine Ratio 13.7 (10-20); Calcium 8.8 mg/dl (8.5-10.1); Creatinine Clr Calc Pharmacy 117.5 ml/min; Est GFR (African American) 93.7; Est GFR (Non-African American) 80.9; Potassium 4.3 mmol/L (3.5-5.1)
--- NOTE | 2019-10-06 02:31 | Billing Data ---
Date of Service October 06, 2019 Coding Level of Care Code 98473 Inpt Consult Level 3
[2019-10-06] MEDS: ACETAMINOPHEN 500 MG TAB PO SCH (06:25)
[2019-10-06] MEDS: INSULIN ASPART 100 UNITS/ML 3 ML PEN SC SCH ×2 (08:32→12:32)
--- NOTE | 2019-10-06 08:32 | Orthopedic Progress Note ---
Date of Service October 06, 2019 Assessment & Plan (1) S/P total knee arthroplasty: POD#4 Bilateral TKA -PT/OT -Pain management -DVT prophylaxis-SCDs, TEDs, Xarelto -D/C planning-Bed available at [facility] today. Will plan for d/c later today. Subjective Patient currently sitting in bed awake and alert. This morning, he is feeling good but he hasn't done anything. Had issues with lightheadedness and near syncope last night again. Pain controlled. No CP, SOB. Physical Exam Constitutional: WD/WN, vitals as above no acute distress Musculoskeletal: Gait: + antalgic gait Knee: + effusion (mild bilateral knee) and + surgical incision (Bilateral YVONNE dressings in place.); knee normal to inspection, no deformity, no skin erythema, no ecchymosis and no surgical drain present Results & Data Vital Signs (Past 12 Hours) Vital Signs Temp Pulse Resp BP Pulse Ox 10/06/19 07:34 37.2 C 88 18 129/78 97 10/06/19 00:08 37.7 C H 10/05/19 23:16 37.8 C H 94 H 18 131/71 96 10/05/19 21:51 102 H 121/59 L 98 10/05/19 21:49 101 H 105/65 98 10/05/19 21:47 115 H 79/48 L 97
[2019-10-06] MEDS: CEROVITE ADV FORMULA TAB PO SCH (08:33)
[2019-10-06] MEDS: lisinopriL 5 MG TAB PO SCH (08:33)
[2019-10-06] MEDS: PANTOprazole 40 MG TAB PO SCH (08:33)
[2019-10-06] MEDS: DOCUSATE SODIUM 100 MG CAP PO SCH (08:33)
[2019-10-06] MEDS: SERTRALINE HCL 50 MG TABLET PO SCH (08:33)
[2019-10-06] MEDS: RIVAROXABAN 10 MG TABLET PO SCH (08:33)
[2019-10-06] MEDS: MoRPHine SULFATE CR 15 MG TABCR PO SCH (08:33)
[2019-10-06] MEDS ORDERED: SODIUM CHLORIDE 0.9% 250 ML IV PRN (08:57)
--- NOTE | 2019-10-06 09:36 | Pharmacy Report ---
Glycemic Control Progress Note - Date of Service October 06, 2019 - Scope Glycemic Pharmacist consulted for glycemic control to write orders per [facility] inpatient glycemic control protocol. - Objective Accuchecks BSG(last 24 hours):: 10/05/19 10/05/19 10/05/19 08:17 12:22 17:17 Glucose POC Glucose 141 H 95 125 H 10/05/19 10/05/19 10/06/19 20:48 22:51 08:07 Glucose 142 H POC Glucose 134 H 138 H HbA1c:: Hemoglobin A1c 6.7 % (4.5-5.6) H 10/03/19 05:45 - Recent Pertinent Medications The patient is currently receiving: * Basal insulin: Lantus -- units every -- hours * Correctional Insulin: Novolog Correction per scale ACHS Goal Range: Low 110 mg/dL - High 140 mg/dL Correction Factor: 25 mg/dL/unit * Prandial insulin: Per carb ratio of 1 unit per 10 grams CHO consumed - Outpatient Anti-Diabetic Meds DIET CONTROLLED - Assessment & Plan ASSESSMENT: * See progress note from 10/03/19 for more background info, in short: * Pt receiving SQ basal bolus insulin regimen for hyperglycemia secondary to baseline DM (outpatient regimen on hold). * Patient is currently receiving an average of 14 units of insulin per day * -- units of basal insulin * 14 units of prandial/correctional insulin * BSGs ranging 95 - 134 mg/dl over the past 24hrs * Changes needed to insulin regimen: * AM Fasting BSG = 138 mg/dl. This is in goal range for patient based on inpatient targets and co-morbidities. * Post-prandial BSGs are in range therefore no changes needed to CF/CR. * Total daily dose = 14 units. PLAN FOR INPATIENT GLYCEMIC CONTROL: * Continuing correction factor OF 25 mg/dl/unit * Continuing carb ratio OF 1 unit per 10 grams CHO consumed * Continuing goal range OF Low 110 mg/dL - High 140 mg/dL RECOMMENDATIONS FOR DISCHARGE: * SEE NOTE FROM 10/03/19 Thank you.
[2019-10-06 09:38] LABS: Basophils # (auto) 0.02 K/uL (0-0.2); Basophils % (auto) 0.2 %; Eosinophils # (auto) 0.05 K/uL (0-0.5); Eosinophils % (auto) 0.4 %; Hematocrit (blood only) 31.8 % (42-52); Hemoglobin 10.2 g/dL (14.0-18.0); Immature Granulocytes # (auto) 0.04 K/uL (0.00-0.02); Immature Granulocytes % (auto) 0.4 %; Lymphocytes # (auto) 1.38 K/uL (1.2-3.4); Lymphocytes % (auto) 12.2 %; Mean Corpuscular Hgb Conc 32.1 g/dL (32-36); Mean Corpuscular Volume 96.7 fL (80-100); Mean Platelet Volume 9.8 fL (7.4-10.4); Monocytes # (auto) 1.03 K/uL (0.11-0.59); Monocytes % (auto) 9.1 %; Neutrophils # (auto) 8.79 K/uL (1.4-6.5); Neutrophils % (auto) 77.7 %; Platelet Count 268 K/uL (130-400); RDW Coefficient of Variation 13.3 % (11.5-14.5); Red Blood Count 3.29 M/uL (4.7-6.1); White Blood Count 11.31 K/uL (4.8-10.8)
[2019-10-06 09:51] LABS: Calcium 9.1 mg/dl (8.5-10.1); Creatinine Clr Calc Pharmacy 130.6 ml/min; Est GFR (African American) 106.5; Est GFR (Non-African American) 91.9; Potassium 4.2 mmol/L (3.5-5.1)
--- NOTE | 2019-10-06 10:39 | XRay Report ---
XR chest 1V portable CLINICAL HISTORY: fever, crackles, POD #4 b/l knee COMPARISON STUDY: Chest radiograph September 05, 2019. FINDINGS: Lung volumes are normal. Linear bibasilar opacities suggest atelectasis. There is no pneumo thorax or pleural effusion. Cardiac size is normal. Mediastinal contours are normal. There is no evid ence for pulmonary edema. IMPRESSION: 1. No acute cardiopulmonary findings. 2. Linear bibasilar opacities consistent with atelectasis. ACT 112: Negative or not required by law. Electronically signed by: Rocco Patel M.D. 10/06/2019 10:38 AM
--- NOTE | 2019-10-06 10:50 | Hospitalist Progress Note ---
Date of Service October 06, 2019 Assessment & Plan (1) Orthostatic hypotension: 59-year-old male was admitted on 02 October 2019 for scheduled bilateral total knee replacements. Medicine was consulted in the late evening on October 05 for periods of hypotension. Orthostatic Hypotension -Appears resolved at this point in time. -Patient noted ability to stand and had BP at 132/71. -May continue BP medications as prescribed -Will sign off at this time, please call if you need us. Thank you for allowing us to take a part in this patient's care. S/P TKA -Management per Orthopedics. Constipation -Likely secondary narcotics -Continue Colace and Senna PRN HTN/HLD -Continue ASA and Crestor -Patient may continue Lisinopril and Metoprolol as symptoms appear to have resolved. GERD -Continue Pantoprazole Anxiety -Continue sertraline DM2 -HgbA1C 6.7 on 10/03/19 -Diet controlled at home -Continue SSI Code status: Full code. Diet: DM 2. DVT prophy: Per orthopedics (presently on Xarelto). PT/OT: Ongoing. Dispo: Admitted to [facility]. Ortho is primary. Medicine on consult. (2) S/P total knee arthroplasty: (3) Degenerative arthritis of knee, bilateral: (4) Constipation: (5) Hypertension: (6) Hyperlipidemia: (7) GERD (gastroesophageal reflux disease): (8) Anxiety: (9) Diabetes mellitus, type 2: Supervising Physician Co-Signing Physician Notes Resident Physician Supervision Note: I independently interviewed and examined the patient and verified the mccord history and physical, reviewed labs and image studies, discussed the case with the resident Dr. Field and agree with the findings and care plan. Subjective Patient seen at the bedside this morning. Patient noted that he was feeling well and that his only complaint was 1/10 b/l knee pain while laying down. He states that he was having some issues the night before with his blood pressure whenever he would go to stand, but that his symptoms resolved shortly after laying down. He has no other concerns at this time. Review of Systems Constitutional: + weakness; no fever and no chills Eyes: no discharge, no eye pain, no photophobia and no worsening vision Ear, Nose, Mouth, Throat: no tinnitus and no dizziness (noted dizziness last night) Respiratory: no cough, no dyspnea and no pain on inspiration Cardiovascular: no chest pain, no dyspnea, no dyspnea on exertion and no palpitations Gastrointestinal: no abdominal pain, no nausea and no vomiting Genitourinary: no dysuria Musculoskeletal: + joint pain and + stiffness Neurologic: + unsteadiness Physical Exam Constitutional: WD/WN, vitals as above Eyes: PERRL, conjunctivae normal, anicteric sclerae ENMT: external ear and nose normal, oropharynx normal Respiratory: normal respiratory effort, lungs clear to auscultation Cardiovascular: RRR, no murmur, no edema Gastrointestinal (Abdomen): normal bowel sounds, soft, nontender, no hepatosplenomegaly Musculoskeletal: Head/Neck/Chest: normocephalic, head atraumatic and neck supple Spine: no cervical spinal tenderness EXTREMITIES: No pedal edema or calf tenderness. Bilateral anterior knees have c/d/I dressings in place. No distal edema. Distal bilateral lower extremity sensation intact. NEURO: No gross neuro deficits. Psychiatric: A+Ox3, euthymic affect Results & Data Vital Signs (Past 12 Hours) Vital Signs Temp Pulse Resp BP Pulse Ox 10/06/19 07:34 37.2 C 88 18 129/78 97 10/06/19 00:08 37.7 C H 10/05/19 23:16 37.8 C H 94 H 18 131/71 96 Resident Activity Tracking Resident Involvement: Resident Care Provided Care Provided: Adult Hospital Medicine
[2019-10-06] MEDS: OXYCODONE HCL IR 5 MG TAB (IMMEDIATE RELEASE) PO PRN (12:07)
--- NOTE | 2019-10-06 13:21 | Hospitalist Progress Note ---
Date of Service October 06, 2019 Assessment & Plan (1) Orthostatic hypotension: (2) S/P total knee arthroplasty: (3) Degenerative arthritis of knee, bilateral: (4) Constipation: (5) Hypertension: (6) Hyperlipidemia: (7) GERD (gastroesophageal reflux disease): (8) Anxiety: (9) Diabetes mellitus, type 2: Results & Data Vital Signs (Past 12 Hours) Vital Signs Temp Pulse Pulse Resp BP Pulse Ox 10/06/19 12:11 37.2 C 88 88 18 129/78 97 10/06/19 07:34 37.2 C 88 18 129/78 97 PG Care Time/CCT Total # of Minutes Spent Total Time Spent with Patient: Total time spent is greater than 50% in coordination of care (as documented) at patient's floor/unit and/or counseling patient:
--- NOTE | 2019-10-06 16:44 | Communication Note ---
Date of Service: October 06, 2019 Patient already seen by resident service with sign off prior to discharge.
--- NOTE | 2019-10-14 17:19 | Discharge Summary ---
DISCHARGE DIAGNOSIS: Degenerative joint disease, bilateral knees. SECONDARY DIAGNOSES: Orthostatic hypotension postoperatively, history of hypertension, hyperlipidemia, gastroesophageal reflux disease, anxiety, diabetes mellitus type 2. CONSULTS: Dr. Beltran Brandon. COMPLICATIONS: None. PROCEDURES: Bilateral total knee arthroplasty performed by Dr. Quan on 10/02/2019. BRIEF HISTORY: As dictated in history and physical. HOSPITAL SUMMARY: The patient was admitted on the above-noted date and had the above-noted surgery performed, which he tolerated well. On his first postoperative day, he was resting in bed comfortably in the morning and was having pain when up ambulating. He had some nausea due to pain, but had resolved. He had no other complaints at that time. Denies dizziness or lightheadedness, no nausea or vomiting at that point in time. Dressings were intact. Calves were soft, nontender. Toes were mobile. He had good dorsiflexion bilaterally. Neurovascular status and sensation intact and benign bilaterally. Vital signs were stable. He was afebrile. Hemoglobin was 10.7 and he was started on PT, OT protocols, continued on DVT prophylaxis and pain management. Later that afternoon I was called by the nursing staff. The patient had attempted PT, but was sitting at the bedside developed hypotension and was put back into bed with severe knee pain bilaterally and right calf pain. Currently, the patient was sitting in bed at that time eating his lunch. He was mildly nauseated. Denied chest pain or shortness of breath. Was given 1 dose of Toradol 30 mg IV which he states has helped his pain. Dressings are intact. Right calf tender on palpation proximally. Homans' exam was positive with increased pain on passive dorsiflexion. He had no overt swelling of the ankles or feet. Neurovascularly intact. Bilateral ultrasound was ordered to rule out DVT. Toradol was added for 24 hours and plans to recheck H&H and PRP in the a.m. Ultrasound proved negative for DVT. Plans are to continue his PT. He was considering rehab placement versus going home. Case management had been consulted and was planning to attempt authorization. By his third postoperative day, he was awake and alert. He stated he tried to sit up in bed with his legs off of the side and the pain in each knee worsened and he got lightheaded and felt like he was going to pass out. The YVONNE dressings were in place. The knees were normal to inspection. No ecchymosis, no surgical drain present. A consult for medicine was placed for orthostatic hypotension, which Dr. Brandon saw the patient on 10/05/2019. Recommendations were made and the medicine service continued to follow the patient during his stay. By his fourth postoperative day, he was seen lying in bed, awake and alert. He was feeling well, but had not been up doing anything. He again had issues with lightheadedness and near syncope the previous night. Pain was controlled. He had no chest pain or shortness of breath. He had mild effusions bilateral knees. YVONNE dressings were in place and otherwise vital signs looked stable and he was afebrile. A bed was available at [facility] and plans were for discharge later in the day if the patient was remaining medically stable. The patient was seen by medicine service later that morning and it appeared that his orthostatic hypotension was resolving. BP standing was 132/71. He ambulated 10 feet and was slowly progressing. He will definitely need a rehab stay post-discharge. He was otherwise remaining orthopedically stable as well as medically stable and it was felt that he could be discharged to [facility] for further physical therapy and care. For further review, please see chart. LABORATORY AND X-RAY DATA: As per chart. DISCHARGE INSTRUCTIONS: The patient was discharged to [facility] on 10/06/2019. DIET: Regular. ACTIVITY: Weightbearing as tolerated on the lower extremities. Follow TK instruction sheets and special care instructions as noted. Additional provider instructions from medicine service shows hold metoprolol the following day and restart this medication on Monday. Continue to use incentive spirometry to take deep breaths. Notify medical provider of any acute leg or calf pain or shortness of breath. DISCHARGE MEDICATIONS: Acetaminophen 1000 mg p.o. q. 8 hours, oxycodone 5-10 mg p.o. q. 4 hours p.r.n., Xarelto 10 mg p.o. daily. Resume home meds as listed.
== END 2019-10-06 13:06 | DRG 462 ==
LOC: ASU 04:59 → 3E 10:38